=== PATIENT | male | born 1945 | race Caucasian/White ===

== ENCOUNTER 2016-11-18 09:19 | Observation (INO) | payer MEDICARE ==
[~2016-11-18] VITALS: Ht 180.3 cm; Wt 85.7 kg
[2016-11-18] MEDS: DOCUSATE SODIUM 100 MG CAP PO SCH ×2 (09:00→20:57)
[~2016-11-18 09:19] MED LIST: /WARF25TA; ATEN25TA; ENOXAPARIN 40 MG/0.4 ML SYRINGE (J1650) SC SCH; LISI10TA4; THERGRAN
[2016-11-18] MEDS ORDERED: FLOM5CAP PO (09:35)
[2016-11-18] MEDS ORDERED: BISO5TAB5 (09:35)
[2016-11-18] MEDS ORDERED: NS 500 ML IV ONE (10:00)
[2016-11-18 10:29] LABS: INR 3.61
[2016-11-18 10:30] LABS: ANION GAP 10 MEQ/L (8-16); BLOOD UREA NITROGEN 25 MG/DL (7-18); CALCIUM LEVEL 8.4 MG/DL (8.8-10.2); CARBON DIOXIDE LEVEL 25 MEQ/L (21-32); CHLORIDE LEVEL 105 MEQ/L (98-107); CREATININE FOR GFR 1.11 MG/DL (0.70-1.30); GLOMERULAR FILTRATION RATE > 60.0 (>42); GLUCOSE, FASTING 205 MG/DL (83-110); POTASSIUM SERUM 3.8 MEQ/L (3.5-5.1); SODIUM LEVEL 140 MEQ/L (136-145)
--- NOTE | 2016-11-18 10:32 | REP ---
CT HEAD WITHOUT CONTRAST: HISTORY: Infarction. Areas of decreased attenuation are present in the periventricular white matter. This represents small vessel ischemic disease. There is no intraparenchymal hemorrhage, mass or midline shift. The ventricular system and cortical sulci are dilated consistent with minimal volume loss. There is no extracerebral collection. Mucosal thickening is present in the ethmoid sinuses. IMPRESSION: 1. Small vessel ischemic disease. 2. Minimal volume loss. Signed by Kali Ulloa MD 11/18/2016 10:34 A
[2016-11-18 10:43] LABS: BASO % 0.3 % (0.0-1.0); EOS # 0.1 K/mm3 (0.0-0.50); EOS % 1.3 % (0.0-3.0); LARGE UNSTAINED CELL # 0.1 K/mm3 (0.0-0.4); LARGE UNSTAINED CELL % 2.6 % (0.0-4.0); LYMPH # 0.7 K/mm3 (1.5-4.5); LYMPH % 16.9 % (24.0-44.0); MEAN CORPUSCULAR VOLUME 96.9 fl (80.0-96.0); MONO # 0.3 K/mm3 (0.0-0.8); NEUTROPHILS # 2.9 K/mm3 (1.8-7.7); NEUTROPHILS % 70.8 % (36.0-66.0); PLATELET COUNT, AUTOMATED 110 k/mm3 (150-450); RED CELL DISTRIBUTION WIDTH 13.1 % (11.5-14.5); WHITE BLOOD COUNT 4.2 K/mm3 (4.0-10.0)
--- NOTE | 2016-11-18 10:46 | REP ---
Portable chest x-ray: Single view. History: CVA. Comparison study: December 16, 2008. Findings: EKG monitoring electrodes overlie the chest. There are metallic arlette in the right shoulder apparently in the glenoid. These are unchanged. The aorta is calcific and a little tortuous. Heart is mildly enlarged. Pulmonary vasculature is not increased. There is no evidence of pleural effusion or pulmonary edema. No significant bony abnormality is seen. Impression: Mildly prominent heart. Otherwise no active disease. Signed by Dimitris Melchor MD 11/18/2016 01:13 P
--- NOTE | 2016-11-18 10:47 | REP ---
RIGHT KNEE SERIES: FIVE VIEWS. HISTORY: CVA. FINDINGS: There is a comminuted nondisplaced fracture of the proximal fibular diaphysis. Mild diffuse osteopenia is noted. No tibial or femoral fracture is seen. No patellar fracture is observed. There is mild patellofemoral osteoarthritic spurring. Chondrocalcinosis is noted medially and laterally. IMPRESSION: Proximal fibular fracture, nondisplaced. Chondrocalcinosis and mild patellofemoral osteoarthritis. No other fracture seen. Signed by Dimitris Melchor MD 11/18/2016 01:14 P
--- NOTE | 2016-11-18 10:48 | REP ---
RIGHT TIB-FIB SERIES: TWO VIEWS. HISTORY: Trauma. FINDINGS: There is a comminuted fracture of the proximal fibular diaphysis as seen on the knee radiographs. No tibial or distal fibular fracture is seen. Ankle mortise is intact. Vascular calcification is noted. There is a linear collection of plaque-like calcification along the anterior margin of the Achilles tendon on the lateral film. There is a small accessory ossicle at the distal aspect of the talus. No midfoot or hindfoot fracture is seen. IMPRESSION: Proximal fibular fracture. No other fracture seen. Pre-Achilles calcification implies prior Achilles tendinopathy. Signed by Dimitris Melchor MD 11/18/2016 01:14 P
[2016-11-18] MEDS ORDERED: GLUCTAB6 PO (10:49)
[2016-11-18] MEDS ORDERED: VITMTA PO (10:49)
[2016-11-18] MEDS ORDERED: BISO5TAB5 PO (10:49)
[2016-11-18] MEDS ORDERED: PROBCAP4 PO (10:49)
[2016-11-18] MEDS ORDERED: B COTAB3 PO (10:49)
[2016-11-18] MEDS ORDERED: MAGN64TASA PO (10:49)
[2016-11-18] MEDS ORDERED: MILK175C7 PO (10:49)
[2016-11-18] MEDS ORDERED: CALC600T57 PO (10:49)
[2016-11-18] MEDS ORDERED: COUM1TAB17 PO (10:51)
[2016-11-18] MEDS ORDERED: COUM2.5T11 PO (10:51)
--- NOTE | 2016-11-18 11:37 | REP ---
RIGHT LOWER EXTREMITY DUPLEX VENOUS ULTRASOUND: HISTORY: Right calf pain, question DVT. FINDINGS: The deep veins are anechoic and fully compressible from the groin to the popliteal fossa in the right lower extremity on two-dimensional scanning. Color-flow imaging is homogeneous. Spectral Doppler interrogation demonstrates intact respiratory variation in flow and normal manual augmentation of flow. There is no evidence of deep vein thrombosis. IMPRESSION: Negative right lower extremity duplex venous ultrasound. No evidence of DVT. Signed by Dimitris Melchor MD 11/18/2016 01:14 P
[2016-11-18] MEDS ORDERED: ONDANSETRON 4MG/2ML VIAL (J2405) IV PRN (11:45)
--- NOTE | 2016-11-18 12:00 | REP ---
RIGHT ANKLE SERIES: FOUR VIEWS. HISTORY: Pain. FINDINGS: Four views of the right ankle demonstrate an intact ankle mortise. No ankle fracture is seen. Vascular calcification is seen. There is dystrophic calcification adjacent to a somewhat thickened Achilles tendon, consistent with Achilles tendonitis-tendinopathy. There is mild calcaneal spurring at the Achilles tendon insertion. An accessory ossicle is seen adjacent to the distal talus. Ankle mortise is intact. Minimal tibiotalar spurring is seen. IMPRESSION: Mild spurring. Achilles tendinopathy changes. Accessory ossicle at the distal talus. No fracture or acute bony abnormality. Signed by Dimitris Melchor MD 11/18/2016 01:14 P
[2016-11-18 12:28] VITALS: BP 136/99
--- NOTE | 2016-11-18 12:58 | ER ---
DATE OF CONSULTATION: 11/18/2016 REQUESTING PHYSICIAN: Amaya Reeder MD CHIEF COMPLAINT: Right leg injury with a proximal fibula fracture. HISTORY: This is a pleasant 70-year-old gentleman who yesterday got up and felt somewhat dizzy or lightheaded and fell. He then fell a couple more times. His helped him to the couch. He has had some right medial sided knee pain that has gotten quite a bit better and he has had some right proximal lateral sided leg pain. Patient is being admitted for a possible transient ischemic attack (TIA) and observation. I was asked to see him because he has a proximal fibula fracture. He denies any other injury. He is resting comfortably. A splint has been applied by Dr. Coreas and she indicated that all the skin was intact. There were no open wounds. He describes no ankle pain. Describes medial sided knee pain and proximal lateral sided leg pain. ALLERGIES: He has no known drug allergies. MEDICATIONS: Include Flomax, bisoprolol, multivitamin, calcium, magnesium, glucosamine and Coumadin. SOCIAL HISTORY: He is an otherwise active gentleman, plays a lot of tennis. He considers himself quite healthy. PAST SURGICAL HISTORY: Includes: Ablation for atrial fibrillation. Colonoscopy. Colon resection. Achilles, elbow and hand surgery. REVIEW OF SYSTEMS: Positive history of gastrointestinal disorder with celiac disease. He has a history of cancer of prostate. HEENT: He wears glasses. ENDOCRINE DISORDERS: Denies. BLOOD DISORDERS: History of a low white cell count per the chart. Denies any psychiatric problems. PHYSICAL EXAMINATION: He is alert, oriented no acute distress. HEENT extraocular muscles intact. Neck is supple, nontender. He has no chest tenderness. No abdominal tenderness. He denies any upper extremity tenderness. He has no swelling or deformity. His left lower extremity is unremarkable. Right lower extremity demonstrates no irritability with range of motion of his hip or knee. He has no significant medial joint line tenderness. He is somewhat tender along his proximal fibula on the right side. He moves his toes well, but he is splinted. He has no tenderness about his ankle. He has good perfusion of his extremity distally. Radiographs were reviewed and they demonstrate a right proximal fibula shaft fracture, overall mildly displaced and good position. His ankle shows no evidence of mortis widening to indicate . The knee x-ray just shows the proximal fibula fracture with mild displacement. There is likely some mild arthritic change. IMPRESSION: Right proximal fibula fracture. This is likely due to a direct blow to the proximal fibula. There is no evidence of an ankle injury or a Maisonneuve fracture. He is in a posterior splint this point, which I think is appropriate. My recommendation would be non-weightbearing on his right lower extremity with crutches or walker. Ice and elevate as necessary, pain control, and then followup in the orthopedic office in approximately a week to 10 days. We may be able to ago with an equalizer boot at that point.
--- NOTE | 2016-11-18 15:12 | HPEPDOC ---
Medical History and Physical Date of Admission Nov 18, 2016 at 11:41 History and Physical PRIMARY CARE PROVIDER: ATTENDING: Anton Ruby MD CHIEF COMPLAINT: Passing out HISTORY OF PRESENT ILLNESS: This is a 70-year-old male past history of atrial fibrillation on Coumadin, hypertension, alcoholic cirrhosis, chronic from cytopenia, prostate cancer status post seed implant, celiac sprue, colon cancer status post colectomy who presents with pre-syncopal episodes. Patient states he's been drinking alcohol recently and drank half a bottle of [place] whiskey, The next day he started to do crunches and bicycle exercises. Patient states he felt very dehydrated with a dry mouth. Patient states she's been having dizziness and blurred vision upon standing from sitting position. Patient states she's been having these complaints symptoms consistent with orthostatic hypotension over the past year, and states he was started on Flomax a year ago for BPH. Patient denies chest pain/shortness of breath. No focal weakness. No syncopal episodes. No head trauma. Patient states he must of bumped his right leg upon falling as he fell 3 times yesterday. In the ED patient was found to have a right fibular fracture. Dr. Coresa had placed a cast, and the patient was in [facility] by orthopedics with recommendations for nonweightbearing on the right leg, continuing cast, and follow-up with them in the clinic in 7-10 days after discharge. PAST MEDICAL HISTORY: As per HPI PAST SURGICAL HISTORY: Achilles tendon repair, left elbow, right shoulder surgery, colectomy. SOCIAL HISTORY:H/o tobacco abuse x 10 years, quit 1974, H.o alcohol abuse, still drinking, however states he has cut down. No illicit drugs.Lives with . FAMILY HISTORY: Non contributory ALLERGIES: Please see below. REVIEW OF SYSTEMS: HEENT: Denies sore throat/headache CARDIOVASCULAR: Denies chest pain/palpitations RESPIRATORY: No shortness of breath/cough GASTROINTESTINAL: denies nausea/vomiting GENITOURINARY: Denies dysuria/urinary urgency. MUSCULOSKELETAL: Denies myalgias/arthralgias NEUROLOGICAL: Denies any focal weakness Rest of ROS negative. HOME MEDICATIONS: Please see below. PHYSICAL EXAMINATION: Vitals: (see below) General: No acute distress, laying comfortably in bed. HEENT: Moist mucous membranes. Neck: No JVD or lymphadenopathy Cardiac: Irregularly irregular, No murmurs Pulm: Clear to auscultation b/l. No wheezing, rhonchi Abd: NT/ND + BS Ext: No edema or cyanosis LABORATORY DATA: See below. IMAGING: CT head 11/18/16 IMPRESSION: 1. Small vessel ischemic disease. 2. Minimal volume loss. Right Knee X ray 11/18/16 IMPRESSION: Proximal fibular fracture, nondisplaced. Chondrocalcinosis and mild patellofemoral osteoarthritis. No other fracture seen. CXR 11/18/16 Impression: Mildly prominent heart. Otherwise no active disease. Right Tib/Fib X ray 11/18/16 IMPRESSION: Proximal fibular fracture. No other fracture seen. Pre-Achilles calcification implies prior Achilles tendinopathy Right ankle x ray 11/18/16 IMPRESSION: Mild spurring. Achilles tendinopathy changes. Accessory ossicle at the distal talus. No fracture or acute bony abnormality. MICROBIOLOGY: Please see below. ASSESSMENT/PLAN: 1. Presyncope, resulting in multiple falls, likely secondary to orthostatic hypotension. Orthostatic vitals + in the ED. Patient does appear to be volume depleted. He has been drinking alcohol recently in has been dehydrated. We'll start gentle IV fluid hydration. Echocardiogram and cardiac enzymes for completeness. Flomax is also been stopped as it is associated with orthostatic hypotension. 2. Right fibular fracture- patient is currently in a cast. Evaluated by orthopedics with recommendations for nonweightbearing on the right lower extremity. Follow-up with orthopedics in 7-10 days after discharge. 3. Hypertension- controlled continue current meds 4. Atrial fibrillation- rate controlled. INR greater than 3. Will hold Coumadin for now, repeat INR in the a.m. for restarting Coumadin. No bleeding at this time. 5. Alcoholic cirrhosis with associated chronic thrombocytopenia- no active bleeding at this time. 6. Alcohol abuse- counseled on cessation. MVI, Folate, Thiamine, Ativan PRN. 7. History of colon cancer status post colectomy 8. History of prostate cancer status post seed implant DVT prophylaxis on Coumadin We'll observe in PCU. Vital Signs Vital Signs Date Time Temp Pulse Resp B/P Pulse Ox O2 Delivery O2 Flow Rate FiO2 11/18/16 10:05 95 155/79 87 104/70 85 77/52 11/18/16 10:19 99 11/18/16 10:49 18 11/18/16 12:28 97.8 Room Air Laboratory Data Labs 24H Laboratory Tests 2 11/18/16 10:03: Activated Partial Thromboplast Time 37.1, Anion Gap 10, White Blood Count 4.2, Red Blood Count 4.13L, Hemoglobin 13.2L, Hematocrit 40.0L, Mean Corpuscular Volume 96.9H, Mean Corpuscular Hemoglobin 32.0, Mean Corpuscular Hemoglobin Concent 33.0, Red Cell Distribution Width 13.1, Platelet Count 110L, Neutrophils (%) (Auto) 70.8H, Lymphocytes (%) (Auto) 16.9L, Monocytes (%) (Auto ) 8.0H, Eosinophils (%) (Auto) 1.3, Basophils (%) (Auto) 0.3, Neutrophils # ( Auto) 2.9, Lymphocytes # (Auto) 0.7L, Monocytes # (Auto) 0.3, Eosinophils # ( Auto) 0.1, Basophils # (Auto) 0.0, Blood Urea Nitrogen 25H, Creatinine 1.11, Sodium Level 140, Potassium Level 3.8, Chloride Level 105, Carbon Dioxide Level 25, Calcium Level 8.4L, Total Creatine Kinase 311H, Creatine Kinase MB 1.5, Creatine Kinase MB Relative Index 0.48, Glomerular Filtration Rate > 60.0, Large Unclassified Cells # 0.1, Large Unclassified Cells % 2.6, Prothromb Time International Ratio 3.61, Prothrombin Time 36.0H, Troponin I < 0.02 11/18/16 10:31: Bedside Glucose (Misc Panel) 182H 11/18/16 12:14: Total Creatine Kinase 343H, Creatine Kinase MB 1.4, Creatine Kinase MB Relative Index 0.40, Troponin I < 0.02 CBC/BMP Laboratory Tests 11/18/16 10:03 Calcium Level 8.4 L, Total Creatine Kinase 311 H, Red Blood Count 4.13 L, Mean Corpuscular Volume 96.9 H, Mean Corpuscular Hemoglobin 32.0, Mean Corpuscular Hemoglobin Concent 33.0, Red Cell Distribution Width 13.1, Neutrophils (%) (Auto ) 70.8 H, Lymphocytes (%) (Auto) 16.9 L, Monocytes (%) (Auto) 8.0 H, Eosinophils (%) (Auto) 1.3, Basophils (%) (Auto) 0.3, Neutrophils # (Auto) 2.9, Lymphocytes # (Auto) 0.7 L, Monocytes # (Auto) 0.3, Eosinophils # (Auto) 0.1, Basophils # (Auto) 0.0 Home Medications Scheduled (Calcium + D3 600-200 mg-Unit) 1 Tab Tab 1 TAB PO DAILY (Glucosamine Chondroitin) 1 Tab Tab 1 TAB PO BID (B Complex) 1 Tab Tab 1 TAB PO DAILY Bisoprolol Fumarate (Bisoprolol Fumarate) 5 Mg Tab 2.5 MG PO QHS Lactobacillus Acidophilus (Probiotic) 1 Cap Cap 1 CAP PO DAILY Magnesium Chloride (Mag64) 64 Mg Tabcr 64 MG PO DAILY Multivitamins *[facility] STOCKED* (Thera M Plus *[facility] STOCKED*) 1 Tab Tab 1 TAB PO DAILY Silybum Marianum (Milk Thistle) 175 Mg Cap 175 MG PO DAILY Tamsulosin Hydrochloride (Flomax) 0.4 Mg Cap 1 CAP PO QHS Warfarin Sod (Coumadin) 2.5 Mg Tab 2.5 MG PO 6XWK TU,WED,TH,FRI,SAT,SUN Warfarin Sod (Coumadin) 5 Mg Tab 5 MG PO QWEEK MONDAYS Allergies Coded Allergies: No Known Drug Allergy (Verified Allergy, Unknown, 12/12/12) ANTON RUBY MD Nov 18, 2016 15:12
[2016-11-18 15:30] VITALS: BP 146/87
[2016-11-18] MEDS: NS 1,000 ML IV SCH (15:53)
[2016-11-18] MEDS: FOLIC ACID 1 MG TAB PO SCH (15:53)
[2016-11-18] MEDS: THIAMINE 100 MG TAB PO SCH (15:53)
[2016-11-18 19:55] VITALS: BP_SYST 120; BP_SYST 122; BP_SYST 129; BP_DIAS 75; BP_DIAS 80; BP_DIAS 96
--- NOTE | 2016-11-18 20:34 | ECGEPIP ---
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
[2016-11-18 21:00] VITALS: BP 146/87
[2016-11-18] MEDS ORDERED: BISOPROLOL FUM 2.5 MG PER 1/2TAB PO SCH (21:00)
[2016-11-18] MEDS: PERCOCET 5MG/325MG TAB PO PRN (21:01)
[2016-11-18 23:55] VITALS: BP 118/73
[2016-11-19] MEDS: NS 1,000 ML IV SCH (00:35)
[2016-11-19] MEDS: PERCOCET 5MG/325MG TAB PO PRN ×3 (01:53→15:21)
[2016-11-19 04:35] LABS: MEAN CORPUSCULAR HEMOGLOBIN 32.5 pg (27.0-33.0); MEAN CORPUSCULAR HGB CONC 33.5 g/dl (32.0-36.5); RED CELL DISTRIBUTION WIDTH 13.1 % (11.5-14.5); WHITE BLOOD COUNT 3.5 K/mm3 (4.0-10.0)
[2016-11-19 04:59] LABS: INR 3.17
[2016-11-19 05:01] LABS: ALBUMIN 2.8 GM/DL (3.2-5.2); ALBUMIN/GLOBULIN RATIO 0.85 (1.00-1.93); ALKALINE PHOSPHATASE 61 U/L (45-117); ALT/SGPT 24 U/L (12-78); ANION GAP 7 MEQ/L (8-16); AST/SGOT 32 U/L (15-37); BILIRUBIN,TOTAL 1.4 MG/DL (0.2-1.0); BLOOD UREA NITROGEN 15 MG/DL (7-18); CALCIUM LEVEL 7.7 MG/DL (8.8-10.2); CARBON DIOXIDE LEVEL 28 MEQ/L (21-32); CHLORIDE LEVEL 109 MEQ/L (98-107); CREATININE FOR GFR 0.78 MG/DL (0.70-1.30); GLOMERULAR FILTRATION RATE > 60.0 (>42); GLUCOSE, FASTING 80 MG/DL (83-110); POTASSIUM SERUM 4.5 MEQ/L (3.5-5.1); SODIUM LEVEL 144 MEQ/L (136-145); TOTAL PROTEIN 6.1 GM/DL (6.4-8.2)
[2016-11-19 05:06] VITALS: BP_SYST 112; BP_SYST 114; BP_SYST 137; BP_DIAS 78; BP_DIAS 80; BP_DIAS 88
--- NOTE | 2016-11-19 06:00 | ECHO ---
DATE OF PROCEDURE: 11/18/2016 REFERRING PHYSICIAN: Dr. Perry Ruby. INDICATION: Syncope. HEIGHT: 71. WEIGHT: 83.5 kg. MEASUREMENTS: Ventricular septum: 1.13 cm Posterior wall: 0.90 cm Left ventricle diastole: 4.9 cm Left atrium: 4.4 cm LVOT: 2.4 cm Aortic root: 3.4 cm DOPPLER MEASUREMENTS: Aortic valve velocity: 111 cm/s LVOT velocity: 67.7 cm/s Mild mitral regurgitation. Mild tricuspid regurgitation. Estimated right ventricle systolic pressure 26 mmHg assuming an atrial pressure of 5 mmHg. DESCRIPTION: Rhythm was moderately technically difficult. Rhythm was atrial fibrillation. This was a 2D, M-mode, color flow Doppler and pulsed wave Doppler examination and included mitral annular tissue Doppler. CONCLUSIONS: 1. Normal left ventricle internal dimensions and wall thickness. No regional wall motion abnormalities. Normal LV systolic function. LVEF 60% by visual estimate. Unable to assess LV diastolic function in the setting of atrial fibrillation. 2. Mild mitral annular calcification. Mild mitral valve regurgitation. 3. Moderate left atrial dilatation. 4. Mild aortic valve sclerosis of a 3-cusp aortic valve. No aortic regurgitation. 5. Very small pericardial effusion. No diastolic chamber collapse. 6. Moderately technically difficult echocardiogram.
[2016-11-19 08:00] VITALS: BP 118/71
[2016-11-19] MEDS ORDERED: NS 1,000 ML IV SCH (08:15)
[2016-11-19] MEDS: THIAMINE 100 MG TAB PO SCH (08:48)
[2016-11-19] MEDS: FOLIC ACID 1 MG TAB PO SCH (08:48)
[2016-11-19] MEDS: DOCUSATE SODIUM 100 MG CAP PO SCH (08:48)
[2016-11-19] MEDS ORDERED: MULTIVITAMINS/MINERALS THERAP 1 TAB PO SCH (09:00)
[2016-11-19] MEDS ORDERED: LACTOBACILLUS ACIDOPHILUS CAP (BACID) PO SCH (09:00)
[2016-11-19 11:36] VITALS: BP_SYST 102; BP_SYST 118; BP_SYST 132; BP_DIAS 78; BP_DIAS 80; BP_DIAS 86
[2016-11-19] MEDS ORDERED: FOLI1TAB2 PO (13:37)
[2016-11-19] MEDS ORDERED: THIA100TA PO (13:37)
--- NOTE | 2016-11-19 15:19 | DS.PDOC ---
Discharge Summary General Date of Admission Nov 18, 2016 at 11:41 Date of Discharge 11/19/16 Attending Physician: ANTON QUINONEZ MD Specialist/Consultants Involve: Raúl Shields Discharge Summary PROCEDURES PERFORMED DURING STAY: None. ADMITTING/DISCHARGE DIAGNOSES: 1. Syncope secondary to orthostatic hypotension 2. Right fibular fracture status post cast placement and orthopedic evaluation 3. Hypertension 4. Atrial fibrillation and Coumadin 5. Alcohol cirrhosis and alcohol abuse with chronic thrombocytopenia 6. History of colon cancer status post colectomy 7. History of prostate cancer status post sees implant COMPLICATIONS/CHIEF COMPLAINT: Syncope And Collapse. HISTORY OF PRESENT ILLNESS/HOSPITAL COURSE: . This is a 70-year-old male past history of atrial fibrillation on Coumadin, hypertension, alcoholic cirrhosis, chronic from cytopenia, prostate cancer status post seed implant, celiac sprue, colon cancer status post colectomy who presents with pre-syncopal episodes. Patient states he's been drinking alcohol recently and drank half a bottle of [place] whiskey, The next day he started to do crunches and bicycle exercises. Patient states he felt very dehydrated with a dry mouth. Patient states she's been having dizziness and blurred vision upon standing from sitting position. Patient states she's been having these complaints symptoms consistent with orthostatic hypotension over the past year, and states he was started on Flomax a year ago for BPH. Patient denies chest pain/shortness of breath. No focal weakness. No syncopal episodes. No head trauma. Patient states he must of bumped his right leg upon falling as he fell 3 times yesterday. In the ED patient was found to have a right fibular fracture. Dr. Coreas had placed a cast, and the patient was in [facility] by orthopedics with recommendations for nonweightbearing on the right leg, continuing cast, and follow-up with them in the clinic in 7-10 days after discharge. Patient has been hydrated and now has negative orthostatics. Patient has been doing well with mobility. His INR still greater than 3. He has been advised to hold his Coumadin today. He 'll restart his Coumadin tomorrow at 2.5 mg daily, and will have his INR checked on Tuesday with those results to be sent to Dr. Bermudez, for further management of his INR. Patient verbalized understanding. Have also given him a prescription for no weightbearing on his right leg. No driving until cleared by orthopedics. Patient was counseled on cessation of alcohol. Advised to stay hydrated. Flomax has been held until patient has been evaluated by urology, as this could cause orthostatic hypotension. DISCHARGE MEDICATIONS: Please see below. ALLERGIES: Please see below. PHYSICAL EXAMINATION ON DISCHARGE: Vitals: (see below) General: No acute distress, laying comfortably in bed. HEENT: Moist mucous membranes. Neck: No JVD or lymphadenopathy Cardiac: Irregularly irregular, No murmurs Pulm: Clear to auscultation b/l. No wheezing, rhonchi Abd: NT/ND + BS Ext: No edema or cyanosis. Right leg in cast. Distal pulses intact. LABORATORY DATA: Please see below. IMAGING: CT head 11/18/16 IMPRESSION: 1. Small vessel ischemic disease. 2. Minimal volume loss. Right Knee X ray 11/18/16 IMPRESSION: Proximal fibular fracture, nondisplaced. Chondrocalcinosis and mild patellofemoral osteoarthritis. No other fracture seen. CXR 11/18/16 Impression: Mildly prominent heart. Otherwise no active disease. Right Tib/Fib X ray 11/18/16 IMPRESSION: Proximal fibular fracture. No other fracture seen. Pre-Achilles calcification implies prior Achilles tendinopathy Right ankle x ray 11/18/16 IMPRESSION: Mild spurring. Achilles tendinopathy changes. Accessory ossicle at the distal talus. No fracture or acute bony abnormality. PROGNOSIS: Good ACTIVITY: As tolerated. DIET: As tolerated DISCHARGE PLAN: Discharge to home DISPOSITION: Discharged to home DISCHARGE INSTRUCTIONS: 1. Follow-up with PCP and orthopedics in 7-10 days. Follow-up with urology in 2 weeks. DISCHARGE CONDITION: Stable. TIME SPENT ON DISCHARGE: Greater than 30 minutes. Vital Signs/I&Os Vital Signs Date Time Temp Pulse Resp B/P Pulse Ox O2 Delivery O2 Flow Rate FiO2 11/19/16 11:36 88 118/78 100 102/80 85 132/86 11/19/16 09:23 18 11/19/16 08:53 Room Air 11/19/16 08:00 97.0 96 11/18/16 16:00 3.0 I&O- Last 24 Hours up to 6 AM 11/19/16 06:00 Intake Total 500 ml Output Total 500 ml Balance 0 ml Laboratory Data Labs 24H Laboratory Tests 2 11/18/16 17:15: Urine Amorphous Sediment SMALLH, Urine Appearance CLOUDYH, Urine Color LISE, Urine pH 7.0, Urine Specific [place] 1.025, Urine Protein NEGATIVE, Urine Glucose (UA) NEGATIVE, Urine Ketones NEGATIVE, Urine Urobilinogen 0.2, Urine Bilirubin NEGATIVE, Urine Leukocyte Esterase NEGATIVE, Urine Bacteria (Auto) 1+H , Urine Blood NEGATIVE, Urine Calcium Carbonate Cryst(Auto) , Urine Calcium Oxalate Cryst (Auto) , Urine Calcium Phosphate [place] (Auto) , Urine Cellular Casts , Urine Cystine Crystals , Urine Granular Casts (Auto) , Urine Hyaline Casts (Auto) 0, Urine Leucine Crystals , Urine Mucus (Auto) , Urine Nitrite NEGATIVE, Urine Oval Fat Bodies (Auto) , Urine RBC (Auto) 2, Urine Renal Epithelial Cells , Urine Sperm (Auto) , Urine Squamous Epithelial Cells 0, Urine Transitional Epithelial Cells , Urine Trichomonas (Auto) , Urine Triple Phosphate Cryst (Auto) , Urine Tyrosine Crystals , Urine Uric Acid Crystals ( Auto) , Urine WBC (Auto) 0, Urine Waxy Casts (Auto) , Urine Yeast-Like Cells ( Auto) 11/18/16 19:45: Creatine Kinase MB 1.0, Creatine Kinase MB Relative Index 0.36, Total Creatine Kinase 277, Troponin I < 0.02 11/19/16 04:25: Creatine Kinase MB 1.0, Creatine Kinase MB Relative Index 0.41, Total Creatine Kinase 243, Troponin I < 0.02, Blood Urea Nitrogen 15, Creatinine 0.78, Sodium Level 144, Potassium Level 4.5, Chloride Level 109H, Carbon Dioxide Level 28, Calcium Level 7.7L, Aspartate Amino Transf (AST/SGOT) 32, Alanine Aminotransferase (ALT/SGPT) 24, Alkaline Phosphatase 61, Total Bilirubin 1.4H, Total Protein 6.1L, Albumin 2.8L, Albumin/Globulin Ratio 0.85L, Anion Gap 7L, Glomerular Filtration Rate > 60.0, Prothromb Time International Ratio 3.17, Prothrombin Time 32.5H CBC/BMP Laboratory Tests 11/19/16 04:25 Calcium Level 7.7 L, Aspartate Amino Transf (AST/SGOT) 32, Alanine Aminotransferase (ALT/SGPT) 24, Total Creatine Kinase 243, Alkaline Phosphatase 61, Total Bilirubin 1.4 H, Total Protein 6.1 L, Albumin 2.8 L, Red Blood Count 3.65 L, Mean Corpuscular Volume 97.0 H, Mean Corpuscular Hemoglobin 32.5, Mean Corpuscular Hemoglobin Concent 33.5, Red Cell Distribution Width 13.1 Discharge Medications Scheduled (Calcium + D3 600-200 mg-Unit) 1 Tab Tab 1 TAB PO DAILY (Reported) (Glucosamine Chondroitin) 1 Tab Tab 1 TAB PO BID (Reported) (B Complex) 1 Tab Tab 1 TAB PO DAILY (Reported) Bisoprolol Fumarate (Bisoprolol Fumarate) 5 Mg Tab 2.5 MG PO QHS (Reported) Folic Acid (Folic Acid) 1 Mg Tab 1 MG PO DAILY Lactobacillus Acidophilus (Probiotic) 1 Cap Cap 1 CAP PO DAILY (Reported) Magnesium Chloride (Mag64) 64 Mg Tabcr 64 MG PO DAILY (Reported) Multivitamins *[facility] STOCKED* (Thera M Plus *[facility] STOCKED*) 1 Tab Tab 1 TAB PO DAILY (Reported) Silybum Marianum (Milk Thistle) 175 Mg Cap 175 MG PO DAILY (Reported) Thiamine Hcl (Thiamine Hcl) 100 Mg Tab 100 MG PO DAILY Warfarin Sod (Coumadin) 2.5 Mg Tab 2.5 MG PO 6XWK (Reported) TU,WED,TH,FRI,SAT,SUN Allergies Coded Allergies: No Known Drug Allergy (Verified Allergy, Unknown, 12/12/12) ANTON QUINONEZ MD Nov 19, 2016 15:19
== END 2016-11-19 15:47 | disposition home or self-care (01) ==
LOC: M ED 10:09 → INTOOBSV 11:41 → M ED INP 11:41 → M PCU 15:24
PROVIDERS: ADMIT Internal Medicine; ATTEND Internal Medicine
DX: I95.1 Orthostatic hypotension (principal); R55 Syncope and collapse; I10 Essential (primary) hypertension; S82.831A Other fracture of upper and lower end of right fibula, initial encounter for closed fracture; W19.XXXA Unspecified fall, initial encounter; Y92.89 Other specified places as the place of occurrence of the external cause; M79.661 Pain in right lower leg; I48.91 Unspecified atrial fibrillation; Z79.01 Long term (current) use of anticoagulants; F10.10 Alcohol abuse, uncomplicated; K70.30 Alcoholic cirrhosis of liver without ascites; D69.6 Thrombocytopenia, unspecified; Z85.038 Personal history of other malignant neoplasm of large intestine; Z85.46 Personal history of malignant neoplasm of prostate; Z87.891 Personal history of nicotine dependence
CPT/HCPCS: 36415; 70450; 71010; 73564; 73590; 73610; 80048; 80053; 81001; 82550; 82553; 84484; 85025; 85027; 85610; 85730; 86850; 86900; 86901; 93005; 93041; 93306; 93971; 94760; 96372; 97165; 99285; G0378; J1650

== ENCOUNTER 2016-12-20 14:14 | Emergency (ER) | payer MEDICARE ==
[~2016-12-20 14:14] MED LIST changes: +B COTAB3 PO; +BISO5TAB5; +BISO5TAB5 PO; +CALC600T57 PO; +COUM1TAB17 PO; +COUM2.5T11 PO; -ENOXAPARIN 40 MG/0.4 ML SYRINGE (J1650) SC SCH; +FLOM5CAP PO; +FOLI1TAB2 PO; +GLUCTAB6 PO; +MAGN64TASA PO; +MILK175C7 PO; +PROBCAP4 PO; +THIA100TA PO; +VITMTA PO
[2016-12-20 14:55] LABS: BASO % 0.1 % (0.0-1.0); EOS # 0.1 K/mm3 (0.0-0.50); EOS % 1.3 % (0.0-3.0); LARGE UNSTAINED CELL # 0.1 K/mm3 (0.0-0.4); LARGE UNSTAINED CELL % 0.9 % (0.0-4.0); LYMPH # 0.9 K/mm3 (1.5-4.5); LYMPH % 8.5 % (24.0-44.0); MEAN CORPUSCULAR HEMOGLOBIN 32.2 pg (27.0-33.0); MEAN CORPUSCULAR HGB CONC 33.2 g/dl (32.0-36.5); MEAN CORPUSCULAR VOLUME 97.1 fl (80.0-96.0); MONO # 0.6 K/mm3 (0.0-0.8); MONO % 6.3 % (0.0-5.0); NEUTROPHILS # 7.5 K/mm3 (1.8-7.7); PLATELET COUNT, AUTOMATED 146 k/mm3 (150-450); RED CELL DISTRIBUTION WIDTH 13.7 % (11.5-14.5); WHITE BLOOD COUNT 9.1 K/mm3 (4.0-10.0)
--- NOTE | 2016-12-20 15:06 | ECGEPIP ---
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
[2016-12-20 15:21] LABS: ANION GAP 10 MEQ/L (8-16); BLOOD UREA NITROGEN 24 MG/DL (7-18); CALCIUM LEVEL 8.6 MG/DL (8.8-10.2); CARBON DIOXIDE LEVEL 26 MEQ/L (21-32); CHLORIDE LEVEL 105 MEQ/L (98-107); CREATININE FOR GFR 1.35 MG/DL (0.70-1.30); GLOMERULAR FILTRATION RATE 55.3 (>42); GLUCOSE, FASTING 129 MG/DL (83-110); POTASSIUM SERUM 3.9 MEQ/L (3.5-5.1); SODIUM LEVEL 141 MEQ/L (136-145)
--- NOTE | 2016-12-20 15:28 | REP ---
PORTABLE CHEST X-RAY: Single view. HISTORY: Chest pain. Comparison study November 18, 2016. FINDINGS: EKG monitoring electrodes overlie the chest. Heart is mildly prominent in size unchanged. Pulmonary vasculature is not increased. Pleural angles are sharp. No infiltrate is seen. IMPRESSION: Mildly prominent heart. Otherwise no acute disease. Signed by Dimitris Melchor MD 12/20/2016 04:00 P
[2016-12-20 15:34] LABS: INR 2.49
[2016-12-20] MEDS ORDERED: ASPIRIN 81 MG CHEW TABLET PO ONE (15:45)
[2016-12-20 20:09] VITALS: BP 150/99
--- NOTE | 2016-12-20 20:16 | ECGEPIP ---
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
== END 2016-12-20 20:17 | disposition home or self-care (01) ==
LOC: EDBD 14:14 → M ED 15:38
DX: R10.13 Epigastric pain (principal); I25.10 Atherosclerotic heart disease of native coronary artery without angina pectoris; Z79.899 Other long term (current) drug therapy; Z79.01 Long term (current) use of anticoagulants

== ENCOUNTER 2017-03-09 08:40 | Emergency (ER) | payer MEDICARE ==
[~2017-03-09] VITALS: Ht 180.3 cm; Wt 85.7 kg
[~2017-03-09 08:40] MED LIST changes: -COUM2.5T11 PO; +COUM2.5T17 PO; -FOLI1TAB2 PO; +FOLI1TAB4 PO; +MILK175C2 PO; -MILK175C7 PO
[2017-03-09] MEDS ORDERED: ASPIRIN 81 MG CHEW TABLET PO ONE (09:00)
[2017-03-09 09:11] LABS: BASO % 0.7 % (0.0-1.0); EOS # 0.2 K/mm3 (0.0-0.50); EOS % 2.9 % (0.0-3.0); LARGE UNSTAINED CELL # 0.2 K/mm3 (0.0-0.4); LARGE UNSTAINED CELL % 2.9 % (0.0-4.0); LYMPH % 18.3 % (24.0-44.0); MEAN CORPUSCULAR HEMOGLOBIN 32.9 pg (27.0-33.0); MEAN CORPUSCULAR HGB CONC 33.8 g/dl (32.0-36.5); MEAN CORPUSCULAR VOLUME 97.4 fl (80.0-96.0); MONO # 0.4 K/mm3 (0.0-0.8); MONO % 6.4 % (0.0-5.0); NEUTROPHILS # 3.8 K/mm3 (1.8-7.7); NEUTROPHILS % 68.9 % (36.0-66.0); PLATELET COUNT, AUTOMATED 167 k/mm3 (150-450); RED CELL DISTRIBUTION WIDTH 12.9 % (11.5-14.5); WHITE BLOOD COUNT 5.5 K/mm3 (4.0-10.0)
--- NOTE | 2017-03-09 09:37 | REP ---
Clinical: Chest pain . Comparison: 12/20/2016 . Findings: The mediastinum and cardiac silhouette are stable and within normal limits for portable technique. The lung alvarado are clear without acute consolidation, effusion, or pneumothorax. Skeletal structures are intact. Impression: Normal portable chest x-ray Signed by Que Meadows MD 03/09/2017 09:29 A
[2017-03-09 09:38] LABS: ALBUMIN 3.6 GM/DL (3.2-5.2); ALKALINE PHOSPHATASE 65 U/L (45-117); ALT/SGPT 29 U/L (12-78); ANION GAP 7 MEQ/L (8-16); AST/SGOT 30 U/L (15-37); BILIRUBIN,DIRECT 0.1 MG/DL (0.0-0.2); BILIRUBIN,TOTAL 0.4 MG/DL (0.2-1.0); BLOOD UREA NITROGEN 19 MG/DL (7-18); CALCIUM LEVEL 8.8 MG/DL (8.8-10.2); CARBON DIOXIDE LEVEL 27 MEQ/L (21-32); CHLORIDE LEVEL 107 MEQ/L (98-107); CREATININE FOR GFR 0.88 MG/DL (0.70-1.30); GLOMERULAR FILTRATION RATE > 60.0 (>42); GLUCOSE, FASTING 108 MG/DL (83-110); POTASSIUM SERUM 3.8 MEQ/L (3.5-5.1); SODIUM LEVEL 141 MEQ/L (136-145); TOTAL PROTEIN 8.1 GM/DL (6.4-8.2)
[2017-03-09 10:12] LABS: INR 1.84
[2017-03-09] MEDS ORDERED: PROPOFOL 200 MG/20 ML VIAL As Ordered ONE (12:10)
[2017-03-09 13:28] VITALS: BP 138/80
--- NOTE | 2017-03-11 07:11 | ECGEPIP ---
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
--- NOTE | 2017-03-11 07:15 | ECGEPIP ---
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
== END 2017-03-09 13:48 | disposition home or self-care (01) ==
LOC: M ED 08:40
DX: I48.91 Unspecified atrial fibrillation (principal); Z79.01 Long term (current) use of anticoagulants

== ENCOUNTER → 2017-10-28 | Outpatient (REF) | payer MEDICARE | LOC: M LAB REF 13:07 | DX: J20.9 Acute bronchitis, unspecified (principal) | CPT/HCPCS: 87633 ==

== ENCOUNTER → 2017-12-29 | Outpatient (REF) | payer MEDICARE ==
[2017-12-29 18:34] LABS: PHOSPHORUS LEVEL 3.2 MG/DL (2.5-4.9)
[2017-12-31 14:09] LABS: ANTI DOUBLE STRAND-DNA AB <1 IU/mL (0-9); ANTINUCLEAR ANTIBODIES DIRECT Positive (Negative); RNP ANTIBODIES <0.2 AI (0.0-0.9); SJOGREN'S ANTI SS-A <0.2 AI (0.0-0.9); SJOGREN'S ANTI SS-B <0.2 AI (0.0-0.9); SMITH ANTIBODIES <0.2 AI (0.0-0.9)
== END ==
LOC: M LAB REF 17:58
DX: R21 Rash and other nonspecific skin eruption (principal)
CPT/HCPCS: 84100

== ENCOUNTER → 2019-02-19 | Outpatient (REF) | payer MEDICARE ==
[~2019-02-19] MED LIST changes: -/WARF25TA; +COUM1TAB18; +FLOM0.4C39 PO; -FLOM5CAP PO; +FOLI1TAB11 PO; -FOLI1TAB4 PO
[2019-02-19 13:54] LABS: PROTHROMBIN TIME 48.4 SECONDS (12.1-14.4)
[2019-02-19 14:18] LABS: INR 5.09
== END ==
LOC: M LAB REF 12:25
PROVIDERS: ATTEND Internal Medicine
DX: I48.2 Chronic atrial fibrillation (principal)

== ENCOUNTER → 2019-04-18 | Outpatient (CLI) | payer MEDICARE ==
[~2019-04-18] MED LIST changes: +BISO5TAB14; +BISO5TAB14 PO; -BISO5TAB5; -BISO5TAB5 PO; +CVS1CAP2 PO; +DIGO0.123 PO; +ELIQ5TAB PO; +MILK175C6 PO; +TAMS1CAP17 PO
--- NOTE | 2019-04-18 12:02 | REP ---
MRI RIGHT KNEE: TECHNIQUE: Axial proton density fat saturation, sagittal proton density T2 STIR, water excitation, coronal proton density, proton density fat saturation. There is a complex tear of the posterior horn of medial meniscus as well as the body and posterior horn of the lateral meniscus. The cruciate and collateral ligaments are intact. The extensor mechanism is intact. There is focal moderate chondromalacia with fissuring in the cartilage of the weightbearing surface of the lateral femoral condyle. Otherwise there is mild diffuse chondromalacia along the femoral condyles and tibial plateaus both medial and laterally. There is moderately severe diffuse chondromalacia in the femoral notch and extending along the anterior aspect of the lateral femoral condyle anteriorly with mild scattered subchondral marrow edema. There is mild diffuse chondromalacia of the patella. The medial and lateral patellar retinacula are intact. There is moderate joint effusion. There is a suprapatellar plica. Oval Gibson's cyst is seen in the medial popliteal fossa with craniocaudal dimension of approximately 4.7 cm, AP dimension 1.9 cm maximally, and transverse 1.8 cm. IMPRESSION: Complex tears posterior horn medial meniscus as well as body and posterior horn lateral meniscus. Cruciate and collateral ligaments are intact. 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 There is focal moderate chondromalacia with fissuring in the weightbearing surface of the cartilage of the lateral femoral condyle. Otherwise there is mild global chondromalacia elsewhere. Moderate joint effusion. Suprapatellar plica. Gibson's cyst. Electronically Signed by Tomas Coreas MD 04/19/2019 12:34 A
== END ==
LOC: M RAD 08:09
PROVIDERS: ATTEND Orthopaedic Surgery Sports Medicine
DX: S83.231A Complex tear of medial meniscus, current injury, right knee, initial encounter (principal); X58.XXXA Exposure to other specified factors, initial encounter; Y92.89 Other specified places as the place of occurrence of the external cause; M71.21 Synovial cyst of popliteal space [Baker], right knee; M25.461 Effusion, right knee

== ENCOUNTER 2019-06-21 12:21 | Day surgery (SDC) | payer MEDICARE ==
[~2019-06-21] VITALS: Ht 180.3 cm; Wt 83.0 kg
[~2019-06-21 12:21] MED LIST changes: -BISO5TAB14; -BISO5TAB14 PO; +BISO5TAB9; +BISO5TAB9 PO; +DIGO0.12 PO; -DIGO0.123 PO; +NS 1,000 ML IV ONE
[2019-06-21] MEDS ORDERED: PROPOFOL 200 MG/20 ML VIAL As Ordered ONE (13:43)
[2019-06-21] MEDS ORDERED: LIDOCAINE 2% INJ 100 MG/5 ML SDV (FOR ANES.) As Ordered ONE (13:43)
--- NOTE | 2019-06-21 14:44 | ROOR ---
Patient Name: Oskar Apple Procedure Date: 06/21/2019 2:27 PM Date of : 1945 Age: 73 Room: [facility] Gender: Male Note Status: Finalized Procedure: Colonoscopy Indications: High risk colon cancer surveillance: Personal history of colonic polyps Providers: Juancho Troncoso Jr, MD Referring MD: JACOBY SHAFFER JR, MD Requesting Provider: Medicines: Propofol per Anesthesia Complications: No immediate complications. Procedure: Pre-Anesthesia Assessment: - Prior to the procedure, a History and Physical was performed, and patient medications and allergies were reviewed. The patient is competent. The risks and benefits of the procedure and the sedation options and risks were discussed with the patient. All questions were answered and informed consent was obtained. Patient identification and proposed procedure were verified by the physician and the nurse in the pre-procedure area and in the procedure room. Mental Status Examination: alert and oriented. Airway Examination: normal oropharyngeal airway and neck mobility. Respiratory Examination: clear to auscultation. CV Examination: normal. ASA Grade Assessment: II - A patient with mild systemic disease. After reviewing the risks and benefits, the patient was deemed in satisfactory condition to undergo the procedure. The anesthesia plan was to use moderate sedation / analgesia (conscious sedation). Immediately prior to administration of medications, the patient was re-assessed for adequacy to receive sedatives. The heart rate, respiratory rate, oxygen saturations, blood pressure, adequacy of pulmonary ventilation, and response to care were monitored throughout the procedure. The physical status of the patient was re-assessed after the procedure. The Colonoscope was introduced through the anus and advanced to the cecum, identified by appendiceal orifice and ileocecal valve. The colonoscopy was performed without difficulty. The patient tolerated the procedure well. The quality of the bowel preparation was adequate. Findings: The rectum, recto-sigmoid colon, sigmoid colon, descending colon, transverse colon, ascending colon, cecum, appendiceal orifice and ileocecal valve appeared normal. A small polyp was found in the hepatic flexure. The polyp was semi-pedunculated. The polyp was removed with a hot snare. Resection and retrieval were complete. Impression: - The rectum, recto-sigmoid colon, sigmoid colon, descending colon, transverse colon, ascending colon, cecum, appendiceal orifice and ileocecal valve are normal. - One small polyp at the hepatic flexure, removed with a hot snare. Resected and retrieved. Recommendation: - Discharge patient to home (ambulatory). - Repeat colonoscopy in 3 - 5 years for surveillance. Juancho Troncoso MD Juancho Troncoso Jr, MD 06/21/2019 2:44:14 PM Electronically signed by Juancho Troncoso Jr, MD Number of Addenda: 0 Note Initiated On: 06/21/2019 2:27 PM Estimated Blood Loss: Estimated blood loss: none.
[2019-06-21 15:15] VITALS: BP 124/76
== END 2019-06-21 15:30 | disposition home or self-care (01) ==
LOC: M OPP 12:21
PROVIDERS: ATTEND Surgery
DX: Z12.11 Encounter for screening for malignant neoplasm of colon (principal); Z86.010 Personal history of colon polyps; Z85.038 Personal history of other malignant neoplasm of large intestine; D12.3 Benign neoplasm of transverse colon; I48.91 Unspecified atrial fibrillation; Z79.899 Other long term (current) drug therapy; Z85.46 Personal history of malignant neoplasm of prostate; Z92.3 Personal history of irradiation

== ENCOUNTER → 2019-06-28 | Outpatient (REF) | payer MEDICARE ==
[~2019-06-28] MED LIST changes: -NS 1,000 ML IV ONE
[2019-06-28 13:41] LABS: APPEARANCE, URINE HAZY (CLEAR); BACTERIA, URINE AUTO NEGATIVE (NEGATIVE); BILIRUBIN, URINE AUTO NEGATIVE (NEGATIVE); BLOOD, URINE BLOOD NEGATIVE (NEGATIVE); COLOR, URINE AMBER (YELLOW); GLUCOSE, URINE (UA) AUTO NEGATIVE (NEGATIVE); KETONE, URINE AUTO NEGATIVE (NEGATIVE); LEUKOCYTE ESTERASE, URINE AUTO NEGATIVE (NEGATIVE); MUCUS, URINE SMALL (NEGATIVE); NITRITE, URINE AUTO NEGATIVE (NEGATIVE); PROTEIN, URINE AUTO NEGATIVE (NEGATIVE); RBC, URINE AUTO 1 /HPF (0-3); SPECIFIC GRAVITY URINE AUTO 1.027 (1.002-1.035); SQUAMOUS EPITHELIAL CELL UR AU 0 /HPF (0-6); WBC, URINE AUTO 0 /HPF (0-3)
== END ==
LOC: M LAB REF 12:32
PROVIDERS: ATTEND Internal Medicine
DX: Z01.818 Encounter for other preprocedural examination (principal); M75.101 Unspecified rotator cuff tear or rupture of right shoulder, not specified as traumatic

== ENCOUNTER → 2020-02-18 | Outpatient (REF) | payer MEDICARE ==
[~2020-02-18] MED LIST changes: +BISO5TAB14; +BISO5TAB14 PO; -BISO5TAB9; -BISO5TAB9 PO; -DIGO0.12 PO; +DIGO0.123 PO
== END ==
LOC: M LAB REF 11:58
PROVIDERS: ATTEND Internal Medicine
DX: I48.21 Permanent atrial fibrillation (principal)

== ENCOUNTER → 2020-05-15 | Outpatient (REF) | payer MEDICARE | LOC: M LAB REF 11:46 | PROVIDERS: ATTEND Internal Medicine | DX: I48.21 Permanent atrial fibrillation (principal) ==

== ENCOUNTER → 2021-03-23 | Outpatient (REF) | payer MEDICARE | LOC: M LAB REF 16:21 | PROVIDERS: ATTEND Internal Medicine | DX: K70.30 Alcoholic cirrhosis of liver without ascites (principal) ==

== ENCOUNTER → 2021-10-16 | Outpatient (CLI) | payer MEDICARE | LOC: M RAD 09:09 | PROVIDERS: ATTEND Internal Medicine | DX: K70.30 Alcoholic cirrhosis of liver without ascites (principal) ==

== ENCOUNTER → 2022-03-23 | Outpatient (REF) | payer MEDICARE ==
[~2022-03-23] MED LIST changes: -GLUCTAB6 PO; +GLUCTAB7 PO
== END ==
LOC: M LAB REF 17:43
PROVIDERS: ATTEND Internal Medicine
DX: K70.30 Alcoholic cirrhosis of liver without ascites (principal)

== ENCOUNTER → 2022-04-19 | Outpatient (REF) | payer MEDICARE ==
[2022-04-19 19:06] LABS: APPEARANCE, URINE CLOUDY (CLEAR); BACTERIA, URINE AUTO NEGATIVE (NEGATIVE); BILIRUBIN, URINE AUTO NEGATIVE (NEGATIVE); BLOOD, URINE BLOOD NEGATIVE (NEGATIVE); COLOR, URINE AMBER (YELLOW); GLUCOSE, URINE (UA) AUTO NEGATIVE (NEGATIVE); KETONE, URINE AUTO TRACE mg/dL (NEGATIVE); LEUKOCYTE ESTERASE, URINE AUTO NEGATIVE (NEGATIVE); MUCUS, URINE SMALL (NEGATIVE); NITRITE, URINE AUTO NEGATIVE (NEGATIVE); PROTEIN, URINE AUTO 1+ mg/dL (NEGATIVE); RBC, URINE AUTO 1 /HPF (0-3); SPECIFIC GRAVITY URINE AUTO 1.021 (1.002-1.035); SQUAMOUS EPITHELIAL CELL UR AU 0 /HPF (0-6); WBC, URINE AUTO 1 /HPF (0-3)
== END ==
LOC: M LAB REF 16:31
PROVIDERS: ATTEND Internal Medicine
DX: Z01.818 Encounter for other preprocedural examination (principal)

== ENCOUNTER 2022-05-07 20:43 | Observation (INO) | payer MEDICARE ==
[~2022-05-07] VITALS: Ht 177.8 cm; Wt 80.6 kg
[2022-05-07] MEDS ORDERED: BISOPROLOL FUM 2.5 MG PER 1/2TAB PO SCH (21:00)
[2022-05-07 22:22] LABS: BASO % 0.6 % (0.0-1.0); EOS # 0.2 10^3/uL (0.0-0.5); EOS % 4.3 % (0.0-3.0); HEMATOCRIT 38.2 % (42.0-52.0); LYMPH # 0.8 10^3/uL (1.5-5.0); MEAN CORPUSCULAR HEMOGLOBIN 33.4 pg (27.0-33.0); MEAN CORPUSCULAR VOLUME 98.2 fl (80.0-96.0); MONO # 0.8 10^3/uL (0.0-0.8); MONO % 17.2 % (2.0-8.0); NEUTROPHILS # 2.8 10^3/uL (1.5-8.5); NEUTROPHILS % 60.7 % (36.0-66.0); PLATELET COUNT, AUTOMATED 118 10^3/uL (150-450); RED BLOOD COUNT 3.89 10^6/uL (4.30-6.10); WHITE BLOOD COUNT 4.6 10^3/uL (4.0-10.0)
[2022-05-07 22:30] LABS: PARTIAL THROMBOPLASTIN TIME 32.1 SECONDS (25.9-37.0)
[2022-05-07] MEDS ORDERED: ISOVUE-370 76% 100ML VIAL As Ordered ONE (22:58)
[2022-05-07 23:03] LABS: CK-MB VALUE MASS 1.3 NG/ML (<3.6); MB/CK RELATIVE INDEX 2.03 (< OR =4)
[2022-05-08] MEDS ORDERED: ZOLP5TAB PO (00:34)
[2022-05-08] MEDS ORDERED: EQL50TAB2 PO (00:34)
[2022-05-08] MEDS ORDERED: HOME MED LIST COMPLETE! XX SCH (00:35)
[2022-05-08] MEDS ORDERED: ASPIRIN 81 MG CHEW TABLET PO ONE (00:40)
[2022-05-08 00:46] LABS: INR 1.24; PROTHROMBIN TIME 16.1 SECONDS (12.7-14.5)
[2022-05-08 01:36] LABS: RSV AMPLIFICATION NEGATIVE (NEGATIVE)
[2022-05-08] MEDS ORDERED: zolPIDEM TARTRATE 5 MG TAB PO PRN (02:25)
[2022-05-08] MEDS ORDERED: ACETAMINOPHEN TAB 650MG DOSE (2X325MG) PO PRN (02:25)
[2022-05-08] MEDS ORDERED: ATORVASTATIN 20 MG TAB PO ONE (03:00)
[2022-05-08 04:20] VITALS: BP 143/85
[2022-05-08 04:58] VITALS: BP 143/85
[2022-05-08 06:59] LABS: HEMATOCRIT 37.5 % (42.0-52.0); HEMOGLOBIN 12.7 g/dl (13.5-17.5); MEAN CORPUSCULAR HEMOGLOBIN 33.4 pg (27.0-33.0); MEAN CORPUSCULAR HGB CONC 33.9 g/dl (32.0-36.5); MEAN CORPUSCULAR VOLUME 98.7 fl (80.0-96.0); PLATELET COUNT, AUTOMATED 106 10^3/uL (150-450); WHITE BLOOD COUNT 3.6 10^3/uL (4.0-10.0)
[2022-05-08 07:09] LABS: HEMOGLOBIN A1c 5.2 %
[2022-05-08 07:24] LABS: CHOLESTEROL RISK RATIO 1.894 (<5)
[2022-05-08 07:26] LABS: BLOOD UREA NITROGEN 20 MG/DL (7-18); CALCIUM LEVEL 9.1 MG/DL (8.8-10.2); CARBON DIOXIDE LEVEL 26 MEQ/L (21-32); CHLORIDE LEVEL 103 MEQ/L (98-107); CREATININE FOR GFR 0.72 MG/DL (0.70-1.30); GLOMERULAR FILTRATION RATE > 60.0 (>42); GLUCOSE, FASTING 82 MG/DL (70-100); MAGNESIUM LEVEL 1.7 MG/DL (1.8-2.4); POTASSIUM SERUM 4.1 MEQ/L (3.5-5.1); SODIUM LEVEL 135 MEQ/L (136-145)
[2022-05-08] MEDS ORDERED: DIGOXIN 0.125 MG TAB PO SCH (09:00)
[2022-05-08] MEDS ORDERED: ASPIRIN 81 MG CHEW TABLET PO SCH (09:00)
[2022-05-08] MEDS ORDERED: APIXABAN 5 MG TAB (ELIQUIS) PO SCH (09:00)
[2022-05-08 09:22] LABS: C REACTIVE PROTEIN QUANTITATIV < 0.30 MG/DL (0.00-0.30)
[2022-05-08] MEDS ORDERED: PROHANCE 279.3MG/ML 15ML VIAL As Ordered ONE (10:21)
[2022-05-08] MEDS ORDERED: PROHANCE 279.3MG/ML 5ML VIAL As Ordered ONE (10:21)
[2022-05-08 10:55] LABS: ERYTHROCYTE SEDIMENTATION RATE 11 mm/hr (0-20)
[2022-05-08] MEDS ORDERED: ASPI81CH8 PO (14:22)
[2022-05-08] MEDS ORDERED: ATORVASTATIN 20 MG TAB PO SCH (21:00)
[2022-05-08] MEDS ORDERED: TAMSULOSIN 0.4 MG CAP PO SCH (21:00)
== END 2022-05-08 15:19 | disposition home or self-care (01) ==
LOC: EDBD 20:43 → M ED 20:43 → M ED INP 05-08 02:25 → ENRESERVDT 05-08 02:51 → ENRESERVTM 05-08 02:51 → M MSPAV 05-08 04:17
PROVIDERS: ADMIT Family Medicine; ATTEND Internal Medicine
DX: R27.8 Other lack of coordination (principal); G45.9 Transient cerebral ischemic attack, unspecified; I48.20 Chronic atrial fibrillation, unspecified; N40.0 Benign prostatic hyperplasia without lower urinary tract symptoms; D69.6 Thrombocytopenia, unspecified; Z85.46 Personal history of malignant neoplasm of prostate; Z92.3 Personal history of irradiation; Z79.82 Long term (current) use of aspirin; Z79.01 Long term (current) use of anticoagulants; Z79.899 Other long term (current) drug therapy
CPT/HCPCS: 36415; 70450; 70496; 70498; 70544; 70553; 71045; 80047; 80048; 80061; 82550; 82553; 83036; 83735; 84484; 85025; 85027; 85610; 85652; 85730; 86140; 87631; 93005; 93041; 93306; 94760; 99285; A9576; G0378; Q9967

== ENCOUNTER → 2022-12-01 | Outpatient (CLI) | payer MEDICARE ==
[~2022-12-01] MED LIST changes: +ASPI81CH8 PO; +EQL50TAB2 PO; +ZOLP5TAB PO
== END ==
LOC: M RAD 07:18
PROVIDERS: ATTEND Internal Medicine
DX: K70.30 Alcoholic cirrhosis of liver without ascites (principal)

== ENCOUNTER → 2023-05-19 | Outpatient (CLI) | payer MEDICARE | LOC: M RAD 08:05 | PROVIDERS: ATTEND Internal Medicine | DX: K74.60 Unspecified cirrhosis of liver (principal) ==

== ENCOUNTER 2023-09-15 07:59 | Day surgery (SDC) | payer MEDICARE ==
[~2023-09-15] VITALS: Ht 177.8 cm; Wt 78.3 kg
[~2023-09-15 07:59] MED LIST changes: +LIDOCAINE 2% 100MG/5ML SDV (FOR ANES.) As Ordered ONE; +propofoL 200 MG/20 ML VIAL As Ordered ONE
[2023-09-15] MEDS: NS 1,000 ML IV ONE (08:14)
[2023-09-15 09:37] VITALS: TEMP 97.4
[2023-09-15 09:55] VITALS: BP 131/69; O2SAT 100
== END 2023-09-15 10:05 | disposition home or self-care (01) ==
LOC: M OPP 07:59
PROVIDERS: ATTEND Surgery
DX: Z12.11 Encounter for screening for malignant neoplasm of colon (principal); K21.00 Gastro-esophageal reflux disease with esophagitis, without bleeding; Z85.038 Personal history of other malignant neoplasm of large intestine; K31.89 Other diseases of stomach and duodenum; K90.0 Celiac disease; Z85.46 Personal history of malignant neoplasm of prostate; K30 Functional dyspepsia; I48.91 Unspecified atrial fibrillation; Z79.01 Long term (current) use of anticoagulants; Z79.899 Other long term (current) drug therapy; Z86.73 Personal history of transient ischemic attack (TIA), and cerebral infarction without residual deficits; Z87.891 Personal history of nicotine dependence

== ENCOUNTER → 2023-09-27 | Outpatient (REF) | payer MEDICARE ==
[~2023-09-27] MED LIST changes: -LIDOCAINE 2% 100MG/5ML SDV (FOR ANES.) As Ordered ONE; -propofoL 200 MG/20 ML VIAL As Ordered ONE
== END ==
LOC: M LAB REF 13:19
PROVIDERS: ATTEND Internal Medicine
DX: I48.21 Permanent atrial fibrillation (principal)

== ENCOUNTER 2023-10-08 19:24 | Emergency (ER) | payer MEDICARE ==
[~2023-10-08] VITALS: Ht 177.8 cm; Wt 88.2 kg
[2023-10-08 20:09] LABS: HEMATOCRIT 33.8 % (42.0-52.0); HEMOGLOBIN 11.7 g/dl (13.5-17.5); LYMPH # 0.3 10^3/uL (1.5-5.0); LYMPH % 4.9 % (24.0-44.0); MEAN CORPUSCULAR HEMOGLOBIN 33.8 pg (27.0-33.0); MEAN CORPUSCULAR HGB CONC 34.6 g/dl (32.0-36.5); MEAN CORPUSCULAR VOLUME 97.7 fl (80.0-96.0); MONO # 0.3 10^3/uL (0.0-0.8); MONO % 3.9 % (2.0-8.0); NEUTROPHILS # 6.1 10^3/uL (1.5-8.5); NEUTROPHILS % 91.1 % (36.0-66.0); RED BLOOD COUNT 3.46 10^6/uL (4.30-6.10); WHITE BLOOD COUNT 6.7 10^3/uL (4.0-10.0)
[2023-10-08 20:26] LABS: PLATELET COUNT, AUTOMATED 95 10^3/uL (150-450)
[2023-10-08 20:30] LABS: LIPASE 80 U/L (12-53)
[2023-10-08 20:32] LABS: CPK CREATINE PHOSPHOKINASE 89 U/L (46-171)
[2023-10-08 20:33] LABS: ALBUMIN 3.5 G/DL (3.2-5.2); ALKALINE PHOSPHATASE 117 U/L (46-116); ALT/SGPT 34 U/L (7.0-40); AST/SGOT 51 U/L (<34); BILIRUBIN,DIRECT 0.8 MG/DL (<0.4); BILIRUBIN,TOTAL 1.9 MG/DL (0.3-1.2); BLOOD UREA NITROGEN 24 MG/DL (9-23); CALCIUM LEVEL 8.9 MG/DL (8.3-10.6); CARBON DIOXIDE LEVEL 26 MMOL/L (20-31); CHLORIDE LEVEL 103 MMOL/L (98-107); CREATININE FOR GFR 0.82 MG/DL (0.70-1.30); GLOMERULAR FILTRATION RATE > 60.0 (>42); GLUCOSE, FASTING 170 MG/DL (74-106); MB/CK RELATIVE INDEX 1.12 (< OR =4); POTASSIUM SERUM 4.3 MMOL/L (3.5-5.1); SODIUM LEVEL 132 MMOL/L (136-145); TOTAL PROTEIN 7.1 G/DL (5.7-8.2)
[2023-10-08] MEDS ORDERED: ASPIRIN 81MG CHEW TABLET PO ONE (20:35)
[2023-10-08 21:05] LABS: INR 1.49; PROTHROMBIN TIME 17.6 SECONDS (12.5-14.5)
[2023-10-08] MEDS ORDERED: ISOVUE-370 76% 100ML VIAL As Ordered ONE (21:05)
[2023-10-08 21:06] LABS: PARTIAL THROMBOPLASTIN TIME 29.9 SECONDS (24.8-34.2)
[2023-10-08 21:36] LABS: CK-MB VALUE MASS 1.1 NG/ML (<3.6); MB/CK RELATIVE INDEX 1.27 (< OR =4)
[2023-10-08 22:31] VITALS: BP 133/79; TEMP 95.3; O2SAT 99
[2023-10-08] MEDS ORDERED: FUROSEMIDE 20MG/2ML VIAL IV ONE (22:45)
[2023-10-08] MEDS ORDERED: LASI20TA3 PO (22:47)
== END 2023-10-08 23:09 | disposition home or self-care (01) ==
LOC: M ED 19:24
DX: I50.22 Chronic systolic (congestive) heart failure (principal); I48.91 Unspecified atrial fibrillation; C61 Malignant neoplasm of prostate; Z91.02 Food additives allergy status; Z79.01 Long term (current) use of anticoagulants; Z79.82 Long term (current) use of aspirin; Z79.899 Other long term (current) drug therapy
CPT/HCPCS: 71046; 71275; 80048; 80076; 80162; 82550; 82553; 83690; 83880; 84484; 85025; 85049; 85055; 85610; 85730; 87486; 87581; 87633; 87798; 93005; 93041; 94760; 96374; 99284; J1940; Q9967

== ENCOUNTER → 2023-12-28 | Outpatient (CLI) | payer MEDICARE ==
[~2023-12-28] MED LIST changes: +LASI20TA3 PO
== END ==
LOC: M RAD 09:15
PROVIDERS: ATTEND Internal Medicine
DX: K76.9 Liver disease, unspecified (principal); N28.1 Cyst of kidney, acquired

== ENCOUNTER → 2024-01-27 | Outpatient (REF) | payer MEDICARE | LOC: M LAB REF 12:06 | PROVIDERS: ATTEND Nurse Practitioner Family | DX: I48.21 Permanent atrial fibrillation (principal); I50.20 Unspecified systolic (congestive) heart failure ==

== ENCOUNTER → 2024-02-29 | Outpatient (CLI) | payer MEDICARE | LOC: M CARPUL 14:12 | PROVIDERS: ATTEND Internal Medicine | DX: I48.21 Permanent atrial fibrillation (principal); I08.3 Combined rheumatic disorders of mitral, aortic and tricuspid valves ==

== ENCOUNTER → 2024-03-06 | Outpatient (REF) | payer MEDICARE | LOC: M LAB REF 12:11 | PROVIDERS: ATTEND Internal Medicine | DX: R60.0 Localized edema (principal); I48.21 Permanent atrial fibrillation; I50.9 Heart failure, unspecified ==

== ENCOUNTER → 2024-03-20 | Outpatient (REF) | payer MEDICARE | LOC: M LAB REF 16:31 | PROVIDERS: ATTEND Internal Medicine | DX: I48.21 Permanent atrial fibrillation (principal) ==

== ENCOUNTER → 2024-05-29 | Outpatient (CLI) | payer MEDICARE | LOC: M RAD 11:13 | PROVIDERS: ATTEND Internal Medicine | DX: M79.604 Pain in right leg (principal); R60.0 Localized edema ==

== ENCOUNTER → 2024-06-18 | Outpatient (REF) | payer MEDICARE ==
[2024-06-18 17:53] LABS: PERCENT SATURATION 9.1 % (19.7-50.0)
== END ==
LOC: M LAB REF 16:35
PROVIDERS: ATTEND Internal Medicine
DX: D64.9 Anemia, unspecified (principal)

== ENCOUNTER → 2024-06-19 | Outpatient (CLI) | payer MEDICARE | LOC: M RAD 07:58 | PROVIDERS: ATTEND Internal Medicine | DX: K74.60 Unspecified cirrhosis of liver (principal); K76.0 Fatty (change of) liver, not elsewhere classified ==

== ENCOUNTER → 2024-07-12 | Outpatient (REF) | payer MEDICARE | LOC: M LAB REF 17:47 | PROVIDERS: ATTEND Internal Medicine | DX: R06.02 Shortness of breath (principal) ==

== ENCOUNTER → 2024-07-25 | Outpatient (REF) | payer MEDICARE ==
[2024-07-25 14:23] LABS: PERCENT SATURATION 9.9 % (19.7-50.0)
== END ==
LOC: M LAB REF 13:20
PROVIDERS: ATTEND Internal Medicine
DX: D64.9 Anemia, unspecified (principal); I48.21 Permanent atrial fibrillation; I50.9 Heart failure, unspecified

== ENCOUNTER → 2024-08-14 | Outpatient (REF) | payer MEDICARE ==
[2024-08-14 17:55] LABS: PERCENT SATURATION 15.3 % (19.7-50.0)
== END ==
LOC: M LAB REF 17:24
PROVIDERS: ATTEND Internal Medicine
DX: K70.30 Alcoholic cirrhosis of liver without ascites (principal); D64.9 Anemia, unspecified

== ENCOUNTER → 2024-08-30 | Outpatient (REF) | payer MEDICARE ==
[2024-08-30 14:25] LABS: PERCENT SATURATION 14.2 % (19.7-50.0)
== END ==
LOC: M LAB REF 12:57
PROVIDERS: ATTEND Internal Medicine
DX: D72.819 Decreased white blood cell count, unspecified (principal)

== ENCOUNTER 2024-09-17 08:47 | Outpatient (CLI) | payer MEDICARE ==
[~2024-09-17] VITALS: Ht 177.8 cm; Wt 84.0 kg
[~2024-09-17 08:47] MED LIST changes: +ALBUTEROL SULFATE 2.5MG/0.5ML INH NEB SOLN INH PRN; +EPINEPHrine INJ 1 MG/ML 1ML AMP IM PRN; +diphenhydrAMINE 50MG/ML VIAL IV PRN; +methylPREDNISolone 125MG 2ML VIAL IV PRN
[2024-09-17 09:00] VITALS: BP 131/57; O2SAT 97
[2024-09-17] MEDS: IRON SUCROSE 500 MG in NS 250 ML OVER 4 HRS IV ONE (09:30)
[2024-09-17 10:30] VITALS: BP 137/72; O2SAT 96
[2024-09-17 11:30] VITALS: BP 120/65; O2SAT 98
[2024-09-17 12:30] VITALS: BP 127/71; O2SAT 98
[2024-09-17 13:45] VITALS: BP 127/81; O2SAT 96
== END 2024-09-17 14:00 ==
LOC: M INFU 08:47
PROVIDERS: ATTEND Internal Medicine
DX: D50.9 Iron deficiency anemia, unspecified (principal)
CPT/HCPCS: 96365; 96366; J1756

== ENCOUNTER → 2024-09-20 | Outpatient (REF) | payer MEDICARE ==
[~2024-09-20] MED LIST changes: -ALBUTEROL SULFATE 2.5MG/0.5ML INH NEB SOLN INH PRN; -EPINEPHrine INJ 1 MG/ML 1ML AMP IM PRN; -diphenhydrAMINE 50MG/ML VIAL IV PRN; -methylPREDNISolone 125MG 2ML VIAL IV PRN
[2024-09-20 14:37] LABS: PERCENT SATURATION 48.6 % (19.7-50.0)
== END ==
LOC: M LAB REF 13:34
PROVIDERS: ATTEND Internal Medicine
DX: I48.21 Permanent atrial fibrillation (principal); D64.9 Anemia, unspecified; I50.9 Heart failure, unspecified

== ENCOUNTER → 2024-10-04 | Outpatient (REF) | payer MEDICARE ==
[~2024-10-04] MED LIST changes: +FAMO40TA3 PO; +FERR325T19 PO; +FURO20TA2 PO; +FURO80TA2 PO; +PROBCAP14 PO; +SPIR-10 PO; +THERTAB52 PO
[2024-10-04 15:09] LABS: PERCENT SATURATION 20.7 % (19.7-50.0)
== END ==
LOC: M LAB REF 13:55
PROVIDERS: ATTEND Internal Medicine
DX: D72.819 Decreased white blood cell count, unspecified (principal)

== ENCOUNTER 2024-10-22 13:36 | Emergency (ER) | payer MEDICARE ==
[~2024-10-22] VITALS: Ht 177.8 cm; Wt 80.7 kg
[2024-10-22 15:09] VITALS: BP 118/61; TEMP 98.4; O2SAT 97
== END 2024-10-22 15:10 | disposition home or self-care (01) ==
LOC: M ED 13:36
DX: S01.03XA Puncture wound without foreign body of scalp, initial encounter (principal); W22.8XXA Striking against or struck by other objects, initial encounter; Y92.009 Unspecified place in unspecified non-institutional (private) residence as the place of occurrence of the external cause; Y93.9 Activity, unspecified; Y99.9 Unspecified external cause status; I48.91 Unspecified atrial fibrillation; I10 Essential (primary) hypertension; Z86.73 Personal history of transient ischemic attack (TIA), and cerebral infarction without residual deficits; Z79.01 Long term (current) use of anticoagulants; Z79.899 Other long term (current) drug therapy; Z91.018 Allergy to other foods

== ENCOUNTER 2024-10-25 09:28 | Day surgery (SDC) | payer MEDICARE ==
[~2024-10-25] VITALS: Ht 177.8 cm; Wt 80.7 kg
[~2024-10-25 09:28] MED LIST changes: +LIDOCAINE 2% 100MG/5ML SDV (FOR ANES.) As Ordered ONE; +propofoL 200 MG/20 ML VIAL As Ordered ONE
[2024-10-25 10:29] VITALS: TEMP 97.1
[2024-10-25 10:50] VITALS: BP 113/55; O2SAT 100
== END 2024-10-25 10:53 | disposition home or self-care (01) ==
LOC: M OPP 09:28
PROVIDERS: ATTEND Surgery
DX: K21.00 Gastro-esophageal reflux disease with esophagitis, without bleeding (principal); K29.50 Unspecified chronic gastritis without bleeding; K29.80 Duodenitis without bleeding; D50.9 Iron deficiency anemia, unspecified; I48.91 Unspecified atrial fibrillation; Z91.018 Allergy to other foods; Z79.01 Long term (current) use of anticoagulants; Z79.899 Other long term (current) drug therapy; Z86.73 Personal history of transient ischemic attack (TIA), and cerebral infarction without residual deficits; Z87.891 Personal history of nicotine dependence

== ENCOUNTER → 2024-11-08 | Outpatient (REF) | payer MEDICARE ==
[~2024-11-08] MED LIST changes: -LIDOCAINE 2% 100MG/5ML SDV (FOR ANES.) As Ordered ONE; -propofoL 200 MG/20 ML VIAL As Ordered ONE
== END ==
LOC: M LAB REF 16:59
PROVIDERS: ATTEND Nurse Practitioner Family
DX: R06.02 Shortness of breath (principal)

== ENCOUNTER → 2024-11-13 | Outpatient (REF) | payer MEDICARE ==
[2024-11-13 20:55] LABS: PERCENT SATURATION 43.8 % (19.7-50.0)
== END ==
LOC: M LAB REF 18:19
PROVIDERS: ATTEND Internal Medicine
DX: D50.9 Iron deficiency anemia, unspecified (principal)

== ENCOUNTER → 2024-12-05 | Outpatient (REF) | payer MEDICARE | LOC: M LAB REF 12:26 | PROVIDERS: ATTEND Internal Medicine | DX: I48.21 Permanent atrial fibrillation (principal); I50.33 Acute on chronic diastolic (congestive) heart failure ==

== ENCOUNTER → 2024-12-12 | Outpatient (REF) | payer MEDICARE | LOC: M LAB REF 12:12 | PROVIDERS: ATTEND Internal Medicine | DX: I48.21 Permanent atrial fibrillation (principal); R06.02 Shortness of breath ==

== ENCOUNTER → 2024-12-13 | Outpatient (CLI) | payer MEDICARE | LOC: M RAD 13:50 | PROVIDERS: ATTEND Physician Assistant | DX: R06.02 Shortness of breath (principal); I50.32 Chronic diastolic (congestive) heart failure; R91.8 Other nonspecific abnormal finding of lung field ==

== ENCOUNTER → 2024-12-14 | Outpatient (CLI) | payer MEDICARE | LOC: M CARPUL 16:59 | PROVIDERS: ATTEND Physician Assistant | DX: R06.02 Shortness of breath (principal); R01.1 Cardiac murmur, unspecified; R07.2 Precordial pain; I48.91 Unspecified atrial fibrillation; I08.3 Combined rheumatic disorders of mitral, aortic and tricuspid valves; I31.39 Other pericardial effusion (noninflammatory) ==

== ENCOUNTER → 2024-12-17 | Outpatient (REF) | payer MEDICARE ==
[2024-12-17 18:41] LABS: BLOOD UREA NITROGEN 30 MG/DL (9-23); CALCIUM LEVEL 8.3 MG/DL (8.3-10.6); CARBON DIOXIDE LEVEL 32 MMOL/L (20-31); CHLORIDE LEVEL 103 MMOL/L (98-107); CREATININE FOR GFR 1.15 MG/DL (0.70-1.30); GLOMERULAR FILTRATION RATE > 60.0 (>35); GLUCOSE, FASTING 106 MG/DL (74-106); POTASSIUM SERUM 3.5 MMOL/L (3.5-5.1); SODIUM LEVEL 141 MMOL/L (136-145)
== END ==
LOC: M LAB REF 12:07
PROVIDERS: ATTEND Internal Medicine
DX: I50.33 Acute on chronic diastolic (congestive) heart failure (principal); I48.21 Permanent atrial fibrillation

== ENCOUNTER → 2024-12-26 | Outpatient (REF) | payer MEDICARE ==
[~2024-12-26] MED LIST changes: +ASPI81TA26 PO; +EPLE25TA15 PO; +EPLE50TA12 PO; +TORS20TA2 PO
[2024-12-26 15:05] LABS: PERCENT SATURATION 6.4 % (19.7-50.0)
== END ==
LOC: M LAB REF 14:08
PROVIDERS: ATTEND Internal Medicine
DX: D50.9 Iron deficiency anemia, unspecified (principal); I50.33 Acute on chronic diastolic (congestive) heart failure

== ENCOUNTER → 2024-12-27 | Outpatient (CLI) | payer MEDICARE ==
[~2024-12-27] MED LIST changes: -ASPI81TA26 PO; -EPLE25TA15 PO; -EPLE50TA12 PO; -TORS20TA2 PO
[2024-12-27 11:16] LABS: CALCIUM LEVEL 8.7 MG/DL (8.3-10.6); CREATININE FOR GFR 1.35 MG/DL (0.70-1.30); GLOMERULAR FILTRATION RATE 53.1 (>35); POTASSIUM SERUM 4.4 MMOL/L (3.5-5.1)
== END ==
LOC: M PLALAB 08:59
PROVIDERS: ATTEND Physician Assistant
DX: I50.32 Chronic diastolic (congestive) heart failure (principal)

== ENCOUNTER 2025-01-01 14:29 | Observation (INO) | payer MEDICARE ==
[~2025-01-01] VITALS: Ht 177.8 cm; Wt 81.3 kg
[2025-01-01] VITALS (7 sets, daily range): BP systolic 116–125; BP diastolic 56–76; TEMP 96.8–98.1; O2SAT 99–100
[~2025-01-01 14:29] MED LIST changes: +EPLE50TA12 PO; -FLOM0.4C39 PO; +TAMS-18 PO; +TORS20TA2 PO
[2025-01-01 15:33] LABS: HEMATOCRIT 21.3 % (42.0-52.0); MEAN CORPUSCULAR HEMOGLOBIN 28.9 pg (27.0-33.0); MEAN CORPUSCULAR HGB CONC 31.5 g/dl (32.0-36.5); MEAN CORPUSCULAR VOLUME 91.8 fl (80.0-96.0); PLATELET COUNT, AUTOMATED 155 10^3/uL (150-450); RED BLOOD COUNT 2.32 10^6/uL (4.30-6.10)
[2025-01-01 15:40] LABS: HEMOGLOBIN 6.7 g/dl (13.5-17.5)
[2025-01-01 15:55] LABS: BASOPHILS 3 % (0-1); EOSINOPHILS 7 % (0-3); LYMPHOCYTES 36 % (16-44); MONOCYTES 5 % (0-5); NEUTROPHILS 49 % (28-66)
[2025-01-01 15:56] LABS: HYPOCHROMASIA 1+; PLATELET ESTIMATE NORMAL (NORMAL)
[2025-01-01 16:01] LABS: CALCIUM LEVEL 8.6 MG/DL (8.3-10.6); CREATININE FOR GFR 0.98 MG/DL (0.70-1.30); POTASSIUM SERUM 4.2 MMOL/L (3.5-5.1)
[2025-01-01] MEDS ORDERED: EPLE25TA15 PO (17:30)
[2025-01-01] MEDS ORDERED: ASPI81TA26 PO (17:30)
[2025-01-01] MEDS ORDERED: HOME MED LIST COMPLETE! XX SCH (17:35)
[2025-01-01] MEDS ORDERED: zolPIDEM TARTRATE 5 MG TAB PO PRN (17:40)
[2025-01-01] MEDS: FAMOTIDINE 20 MG TAB PO SCH (21:00)
[2025-01-01] MEDS: TAMSULOSIN 0.4 MG CAP PO SCH (21:00)
[2025-01-01] MEDS: BISOPROLOL FUM 2.5 MG PER 1/2TAB PO SCH (21:00)
[2025-01-01] MEDS: ASPIRIN 81MG ENTERIC TABLET PO SCH (21:00)
[2025-01-01] MEDS: FUROSEMIDE 40MG/4ML VIAL IV ONE (21:25)
[2025-01-01] MEDS: IRON SUCROSE 100MG/5ML VIAL IV ONE (22:00)
[2025-01-02] VITALS: BP 112/70; TEMP 97.6; O2SAT 100
[2025-01-02] MEDS ORDERED: DIGOXIN 0.125 MG TAB PO SCH (09:00)
[2025-01-02] MEDS ORDERED: MAGNESIUM GLUCONATE 500 MG TAB PO SCH (09:00)
[2025-01-02] MEDS ORDERED: TORSEMIDE 20 MG TAB PO SCH (09:00)
== END 2025-01-02 00:28 | disposition left against medical advice (07) ==
LOC: M ED 14:29 → M ED INP 17:04 → INTOOBSV 17:04 → M PCU 22:02
PROVIDERS: ADMIT Student in an Organized Health Care Education/Training Program; ATTEND Student in an Organized Health Care Education/Training Program
DX: D50.9 Iron deficiency anemia, unspecified (principal); Z53.8 Procedure and treatment not carried out for other reasons; D46.A Refractory cytopenia with multilineage dysplasia; I10 Essential (primary) hypertension; I48.91 Unspecified atrial fibrillation; Z79.01 Long term (current) use of anticoagulants; I42.6 Alcoholic cardiomyopathy; Z79.82 Long term (current) use of aspirin; Z79.899 Other long term (current) drug therapy; Z87.891 Personal history of nicotine dependence
CPT/HCPCS: 36415; 36430; 80048; 80053; 82607; 82728; 82746; 83550; 84238; 85025; 85046; 86850; 86900; 86901; 86920; 96374; 96375; 99284; G0378; G0463; J1756; J1938; P9016

== ENCOUNTER → 2025-01-08 | Outpatient (REF) | payer MEDICARE ==
[~2025-01-08] MED LIST changes: +ASPI81TA26 PO; +EPLE25TA15 PO
[2025-01-08 16:33] LABS: ALBUMIN 2.7 G/DL (3.2-5.2); BILIRUBIN,TOTAL 1.2 MG/DL (0.3-1.2); CALCIUM LEVEL 8.2 MG/DL (8.3-10.6); CREATININE FOR GFR 0.99 MG/DL (0.70-1.30); POTASSIUM SERUM 3.7 MMOL/L (3.5-5.1); TOTAL PROTEIN 6.2 G/DL (5.7-8.2)
[2025-01-08 16:40] LABS: BASO % 0.3 % (0.0-1.0); EOS # 0.1 10^3/uL (0.0-0.5); EOS % 4.8 % (0.0-3.0); HEMATOCRIT 21.7 % (42.0-52.0); LYMPH # 0.6 10^3/uL (1.5-5.0); LYMPH % 21.8 % (24.0-44.0); MEAN CORPUSCULAR HEMOGLOBIN 29.3 pg (27.0-33.0); MEAN CORPUSCULAR HGB CONC 31.3 g/dl (32.0-36.5); MEAN CORPUSCULAR VOLUME 93.5 fl (80.0-96.0); MONO # 0.6 10^3/uL (0.0-0.8); MONO % 21.8 % (2.0-8.0); NEUTROPHILS # 1.5 10^3/uL (1.5-8.5); PLATELET COUNT, AUTOMATED 137 10^3/uL (150-450); RED BLOOD COUNT 2.32 10^6/uL (4.30-6.10); WHITE BLOOD COUNT 2.9 10^3/uL (4.0-10.0)
[2025-01-08 17:49] LABS: HEMOGLOBIN 6.8 g/dl (13.5-17.5)
== END ==
LOC: M LAB REF 16:16
PROVIDERS: ATTEND Internal Medicine
DX: D72.819 Decreased white blood cell count, unspecified (principal); I50.33 Acute on chronic diastolic (congestive) heart failure; I48.21 Permanent atrial fibrillation

== ENCOUNTER → 2025-01-15 | Outpatient (REF) | payer MEDICARE ==
[2025-01-15 12:06] LABS: INR 1.43; PROTHROMBIN TIME 17.7 SECONDS (12.5-14.5)
[2025-01-15 12:33] LABS: ALBUMIN 2.8 G/DL (3.2-5.2); BILIRUBIN,TOTAL 1.1 MG/DL (0.3-1.2); CREATININE FOR GFR 0.94 MG/DL (0.70-1.30); POTASSIUM SERUM 4.5 MMOL/L (3.5-5.1); TOTAL PROTEIN 6.2 G/DL (5.7-8.2)
== END ==
LOC: M LAB REF 11:30
PROVIDERS: ATTEND Internal Medicine
DX: I50.9 Heart failure, unspecified (principal); Z79.01 Long term (current) use of anticoagulants

== ENCOUNTER → 2025-01-24 | Outpatient (CLI) | payer MEDICARE ==
[2025-01-24 17:33] LABS: CALCIUM LEVEL 8.6 MG/DL (8.3-10.6); CREATININE FOR GFR 1.05 MG/DL (0.70-1.30); GLOMERULAR FILTRATION RATE 71.8 (>35); POTASSIUM SERUM 3.8 MMOL/L (3.5-5.1)
== END ==
LOC: M PLALAB 13:44
PROVIDERS: ATTEND Physician Assistant
DX: R06.02 Shortness of breath (principal); I50.32 Chronic diastolic (congestive) heart failure

== ENCOUNTER → 2025-01-30 | Outpatient (CLI) | payer MEDICARE | LOC: M PLAIMG 14:16 | PROVIDERS: ATTEND Internal Medicine | DX: K70.30 Alcoholic cirrhosis of liver without ascites (principal) ==

== ENCOUNTER → 2025-03-08 | Outpatient (REF) | payer MEDICARE ==
[~2025-03-08] MED LIST changes: +CARV3.12 PO; -EQL50TAB2 PO; +MAG100TA PO; +VITA1TAB82 PO
[2025-03-08 14:48] LABS: PERCENT SATURATION 11.3 % (19.7-50.0)
== END ==
LOC: M LAB REF 14:11
PROVIDERS: ATTEND Internal Medicine
DX: D50.9 Iron deficiency anemia, unspecified (principal)

== ENCOUNTER 2025-03-18 13:32 | Observation (INO) | payer MEDICARE ==
[~2025-03-18] VITALS: Ht 177.8 cm; Wt 76.5 kg
[2025-03-18 14:20] LABS: VENOUS BASE EXCESS 0.8 (-2.0-2.0); VENOUS HCO3 24.3 MMOL/L (23.0-27.0); VENOUS O2 SATURATION 93.3 % (60.0-80.0); VENOUS PARTIAL PRESSURE CO2 33.5 mmHg (38.0-50.0); VENOUS PARTIAL PRESSURE O2 70.5 mmHg (30.0-50.0); VENOUS PH 7.479 UNITS (7.330-7.430); VENOUS STANDARD HCO3 25.2 MMOL/L; VENOUS TOTAL CO2 25.4 MMOL/L (24.0-28.0)
[2025-03-18 14:27] LABS: BASO # 0.0 10^3/uL (0.0-0.2); BASO % 0.4 % (0.0-1.0); EOS # 0.2 10^3/uL (0.0-0.5); EOS % 6.4 % (0.0-3.0); LYMPH # 0.6 10^3/uL (1.5-5.0); LYMPH % 20.1 % (24.0-44.0); MONO # 0.6 10^3/uL (0.0-0.8); MONO % 19.8 % (2.0-8.0); NEUTROPHILS # 1.5 10^3/uL (1.5-8.5); NEUTROPHILS % 52.9 % (36.0-66.0); PLATELET COUNT, AUTOMATED 151 10^3/uL (150-450)
[2025-03-18 14:42] LABS: CK-MB VALUE MASS 1.6 NG/ML (<3.6)
[2025-03-18 14:43] LABS: ETHYL ALCOHOL (ETHANOL) 0.004 % (0.000-0.010)
[2025-03-18 14:44] LABS: INR 1.45
[2025-03-18 14:45] LABS: ALT/SGPT 47.0 U/L (7.0-40); AST/SGOT 74.0 U/L (<34); CALCIUM LEVEL 8.4 MG/DL (8.3-10.6); CARBON DIOXIDE LEVEL 27.0 MMOL/L (20-31); CHLORIDE LEVEL 104.0 MMOL/L (98-107); CREATININE FOR GFR 0.98 MG/DL (0.70-1.30); GLOMERULAR FILTRATION RATE 78.0 (>35); POTASSIUM SERUM 4.0 MMOL/L (3.5-5.1); SODIUM LEVEL 141.0 MMOL/L (136-145)
[2025-03-18 14:49] LABS: CPK CREATINE PHOSPHOKINASE 110.0 U/L (46-171); MB/CK RELATIVE INDEX 1.45 (< OR =4)
[2025-03-18] MEDS ORDERED: HOME MED LIST COMPLETE! XX SCH (15:20)
[2025-03-18 18:30] VITALS: BP 123/59; TEMP 94.6; O2SAT 100
[2025-03-18 18:45] VITALS: BP 126/60; TEMP 97.7; O2SAT 100
[2025-03-18] MEDS: FAMOTIDINE 20 MG TAB PO SCH (21:00)
[2025-03-18] MEDS: TAMSULOSIN 0.4 MG CAP PO SCH (21:00)
[2025-03-18 21:10] VITALS: BP 118/59; TEMP 97.2; O2SAT 100
[2025-03-18 23:30] VITALS: BP 125/57; TEMP 97.2; O2SAT 98
[2025-03-19] MEDS ORDERED: DIGOXIN 0.125 MG TAB PO SCH (09:00)
[2025-03-19] MEDS ORDERED: TORSEMIDE 20 MG TAB PO SCH (09:00)
== END 2025-03-18 23:45 | disposition left against medical advice (07) ==
LOC: M ED 13:32 → M ED INP 13:33
PROVIDERS: ADMIT Student in an Organized Health Care Education/Training Program; ATTEND Student in an Organized Health Care Education/Training Program
DX: K70.30 Alcoholic cirrhosis of liver without ascites (principal); D50.9 Iron deficiency anemia, unspecified; I48.91 Unspecified atrial fibrillation; Z79.01 Long term (current) use of anticoagulants; I42.6 Alcoholic cardiomyopathy; I10 Essential (primary) hypertension; D61.818 Other pancytopenia; Z87.891 Personal history of nicotine dependence; Z79.82 Long term (current) use of aspirin; Z79.899 Other long term (current) drug therapy; Z91.038 Other insect allergy status
CPT/HCPCS: 36430; 71045; 80053; 80162; 82077; 82248; 82550; 82553; 82803; 83550; 83605; 83690; 84484; 85014; 85018; 85025; 85384; 85610; 85730; 86850; 86900; 86901; 86920; 93005; 93041; 94760; 99285; G0378; P9016

== ENCOUNTER → 2025-03-18 | Outpatient (REF) | payer MEDICARE ==
[2025-03-18 14:23] LABS: INR 1.5
[2025-03-18 14:24] LABS: DIGOXIN LEVEL 0.6 NG/ML (0.8-2.0); IRON (FE) 19.0 UG/DL (65-175); PERCENT SATURATION 6.4 % (19.7-50.0)
== END ==
LOC: M LAB REF 14:05
PROVIDERS: ATTEND Internal Medicine
DX: K70.30 Alcoholic cirrhosis of liver without ascites (principal); D50.9 Iron deficiency anemia, unspecified

== ENCOUNTER → 2025-04-01 | Outpatient (REF) | payer MEDICARE ==
[2025-04-01 15:50] LABS: IRON (FE) 118.0 UG/DL (65-175); PERCENT SATURATION 40.1 % (19.7-50.0)
== END ==
LOC: M LAB REF 14:28
PROVIDERS: ATTEND Internal Medicine
DX: D50.9 Iron deficiency anemia, unspecified (principal)

== ENCOUNTER → 2025-04-12 | Outpatient (REF) | payer MEDICARE ==
[2025-04-12 14:42] LABS: IRON (FE) 90.0 UG/DL (65-175); PERCENT SATURATION 29.5 % (19.7-50.0)
== END ==
LOC: M LAB REF 13:55
PROVIDERS: ATTEND Internal Medicine
DX: D50.9 Iron deficiency anemia, unspecified (principal)

== ENCOUNTER → 2025-04-30 | Outpatient (REF) | payer MEDICARE ==
[2025-04-30 15:28] LABS: IRON (FE) 85.0 UG/DL (65-175); PERCENT SATURATION 26.2 % (19.7-50.0)
== END ==
LOC: M LAB REF 14:47
PROVIDERS: ATTEND Internal Medicine
DX: D64.9 Anemia, unspecified (principal)

== ENCOUNTER → 2025-05-15 | Outpatient (REF) | payer MEDICARE ==
[2025-05-15 16:03] LABS: IRON (FE) 74.0 UG/DL (65-175); PERCENT SATURATION 24.6 % (19.7-50.0)
== END ==
LOC: M LAB REF 14:30
PROVIDERS: ATTEND Internal Medicine
DX: D64.9 Anemia, unspecified (principal)

== ENCOUNTER → 2025-05-29 | Outpatient (REF) | payer MEDICARE ==
[~2025-05-29] MED LIST changes: -ZOLP5TAB PO; +ZOLP5TAB9 PO
[2025-05-29 14:38] LABS: IRON (FE) 68.0 UG/DL (65-175); PERCENT SATURATION 21.8 % (19.7-50.0)
== END ==
LOC: M LAB REF 14:09
PROVIDERS: ATTEND Internal Medicine
DX: D50.8 Other iron deficiency anemias (principal)

== ENCOUNTER → 2025-06-17 | Outpatient (REF) | payer MEDICARE ==
[2025-06-17 15:09] LABS: IRON (FE) 64.0 UG/DL (65-175); PERCENT SATURATION 20.3 % (19.7-50.0)
== END ==
LOC: M LAB REF 14:18
PROVIDERS: ATTEND Internal Medicine
DX: D64.9 Anemia, unspecified (principal)

== ENCOUNTER → 2025-06-25 | Outpatient (REF) | payer MEDICARE ==
[2025-06-25 16:13] LABS: DIGOXIN LEVEL < 0.1 NG/ML (0.8-2.0)
[2025-06-25 16:15] LABS: VITAMIN B12 LEVEL 763 PG/ML (211-911)
[2025-06-25 16:48] LABS: HEPATITIS C VIRUS ABY INDEX 0.09 INDEX (<0.8)
== END ==
LOC: M LAB REF 15:13
PROVIDERS: ATTEND Internal Medicine
DX: K70.30 Alcoholic cirrhosis of liver without ascites (principal); D50.9 Iron deficiency anemia, unspecified; I50.32 Chronic diastolic (congestive) heart failure; Z11.59 Encounter for screening for other viral diseases

== ENCOUNTER → 2025-06-27 | Outpatient (REF) | payer MEDICARE | LOC: M LAB REF 14:22 | PROVIDERS: ATTEND Internal Medicine | DX: K70.30 Alcoholic cirrhosis of liver without ascites (principal); D64.9 Anemia, unspecified ==

== ENCOUNTER → 2025-06-27 | Outpatient (REF) | payer MEDICARE | LOC: M LAB REF 14:25 | PROVIDERS: ATTEND Internal Medicine | DX: D64.9 Anemia, unspecified (principal); K70.30 Alcoholic cirrhosis of liver without ascites ==

== ENCOUNTER → 2025-07-01 | Outpatient (CLI) | payer MEDICARE | LOC: M LAB 08:26 → M PLALAB 08:26 | PROVIDERS: ATTEND Internal Medicine | DX: D64.9 Anemia, unspecified (principal) ==

== ENCOUNTER 2025-07-02 07:10 | Outpatient (CLI) | payer MEDICARE ==
[~2025-07-02] VITALS: Ht 177.8 cm; Wt 76.3 kg
[2025-07-02] MEDS ORDERED: NS (Normal Saline) 0.9% 250 ML IV ONE (07:30)
[2025-07-02 08:05] VITALS: BP 113/56; TEMP 97; O2SAT 100
[2025-07-02] MEDS: ACETAMINOPHEN 650 MG PO ONE (08:24)
[2025-07-02 08:25] VITALS: BP 112/57; TEMP 97.7; O2SAT 100
[2025-07-02 09:25] VITALS: BP 131/88; TEMP 98.3; O2SAT 100
[2025-07-02 10:15] VITALS: BP 140/77; TEMP 97.7; O2SAT 100
[2025-07-02 11:30] VITALS: BP 119/67; TEMP 98; O2SAT 100
== END 2025-07-02 11:43 | disposition home or self-care (01) ==
LOC: M INFU 07:10
PROVIDERS: ATTEND Internal Medicine
DX: D64.9 Anemia, unspecified (principal)
CPT/HCPCS: 36430; P9016

== ENCOUNTER → 2025-07-03 | Outpatient (CLI) | payer MEDICARE | LOC: M WUC 12:05 | PROVIDERS: ATTEND Internal Medicine | DX: M25.532 Pain in left wrist (principal) ==

== ENCOUNTER → 2025-07-03 | Outpatient (CLI) | payer MEDICARE | LOC: M EKG 10:57 | PROVIDERS: ATTEND Physician Assistant | DX: R00.1 Bradycardia, unspecified (principal) ==

== ENCOUNTER → 2025-07-18 | Outpatient (REF) | payer MEDICARE ==
[2025-07-18 18:36] LABS: IRON (FE) 102.0 UG/DL (65-175); PERCENT SATURATION 29.5 % (19.7-50.0)
== END ==
LOC: M LAB REF 17:24
PROVIDERS: ATTEND Nurse Practitioner Adult Health
DX: D50.9 Iron deficiency anemia, unspecified (principal)

== ENCOUNTER → 2025-07-22 | Outpatient (CLI) | payer MEDICARE | LOC: M RAD 09:16 | PROVIDERS: ATTEND Internal Medicine | DX: K70.30 Alcoholic cirrhosis of liver without ascites (principal); K82.8 Other specified diseases of gallbladder ==

== ENCOUNTER → 2025-08-12 | Outpatient (REF) | payer MEDICARE | LOC: M LAB REF 11:58 | PROVIDERS: ATTEND Nurse Practitioner Adult Health | DX: I50.32 Chronic diastolic (congestive) heart failure (principal) ==

== ENCOUNTER → 2025-08-13 | Outpatient (CLI) | payer MEDICARE | LOC: M LAB 14:52 | PROVIDERS: ATTEND Internal Medicine | DX: D64.9 Anemia, unspecified (principal) ==

== ENCOUNTER 2025-08-14 07:17 | Outpatient (CLI) | payer MEDICARE ==
[~2025-08-14] VITALS: Ht 177.8 cm; Wt 77.3 kg
[2025-08-14 07:15] VITALS: BP 113/51; O2SAT 100
[2025-08-14] MEDS: ACETAMINOPHEN 650 MG PO ONE (07:31)
[2025-08-14 08:30] VITALS: BP 107/55; TEMP 97.4; O2SAT 100
[2025-08-14 09:30] VITALS: BP 104/59; TEMP 97.6; O2SAT 99
[2025-08-14 11:15] VITALS: BP 120/60; O2SAT 99
== END 2025-08-14 11:15 | disposition home or self-care (01) ==
LOC: M INFU 07:17
PROVIDERS: ATTEND Internal Medicine
DX: D50.9 Iron deficiency anemia, unspecified (principal)
CPT/HCPCS: 36430; P9016

== ENCOUNTER → 2025-08-22 | Outpatient (CLI) | payer MEDICARE ==
[2025-08-22 15:11] LABS: PLATELET COUNT, AUTOMATED 101 10^3/uL (150-450)
[2025-08-22 15:34] LABS: INR 1.22
[2025-08-22 15:45] LABS: ALT/SGPT 51.0 U/L (7.0-40); AST/SGOT 85.0 U/L (<34); CALCIUM LEVEL 8.0 MG/DL (8.3-10.6); CARBON DIOXIDE LEVEL 28.0 MMOL/L (20-31); CHLORIDE LEVEL 101.0 MMOL/L (98-107); CREATININE FOR GFR 0.85 MG/DL (0.70-1.30); GLOMERULAR FILTRATION RATE 87.8 (>35); POTASSIUM SERUM 3.9 MMOL/L (3.5-5.1); SODIUM LEVEL 135.0 MMOL/L (136-145)
== END ==
LOC: M LAB 14:09
PROVIDERS: ATTEND Internal Medicine
DX: D50.9 Iron deficiency anemia, unspecified (principal); D61.818 Other pancytopenia; I48.21 Permanent atrial fibrillation; I11.0 Hypertensive heart disease with heart failure; I50.9 Heart failure, unspecified; K70.30 Alcoholic cirrhosis of liver without ascites; Z79.82 Long term (current) use of aspirin; Z79.02 Long term (current) use of antithrombotics/antiplatelets

== ENCOUNTER 2025-08-23 10:19 | Outpatient (CLI) | payer MEDICARE ==
[~2025-08-23] VITALS: Ht 177.8 cm; Wt 77.2 kg
[2025-08-23] MEDS: ACETAMINOPHEN 650 MG PO ONE (10:30)
[2025-08-23] MEDS ORDERED: NS (Normal Saline) 0.9% 250 ML IV ONE (10:30)
[2025-08-23 10:47] VITALS: BP 124/61; TEMP 98.1; O2SAT 100
[2025-08-23 11:30] VITALS: BP 108/64; TEMP 98.5; O2SAT 100
[2025-08-23 12:30] VITALS: BP 110/70; TEMP 98.4; O2SAT 100
[2025-08-23 13:42] VITALS: BP 103/54; TEMP 99; O2SAT 98
[2025-08-23 14:10] VITALS: BP 112/57; O2SAT 98
== END 2025-08-23 14:10 | disposition home or self-care (01) ==
LOC: M INFU 10:19
PROVIDERS: ATTEND Internal Medicine
DX: D50.9 Iron deficiency anemia, unspecified (principal); Z91.02 Food additives allergy status
CPT/HCPCS: 36430; P9016

== ENCOUNTER 2025-08-31 16:46 | Inpatient (IN) | payer MEDICARE ==
[~2025-08-31] VITALS: Ht 177.8 cm; Wt 83.5 kg
[2025-08-31] MEDS ORDERED: ISOVUE-370 76% 100 ML VIAL As Ordered ONE (18:05)
[2025-08-31 18:11] LABS: VENOUS BASE EXCESS 2.3 (-2.0-2.0); VENOUS HCO3 26.3 MMOL/L (23.0-27.0); VENOUS O2 SATURATION 89.8 % (60.0-80.0); VENOUS PARTIAL PRESSURE CO2 38.1 mmHg (38.0-50.0); VENOUS PARTIAL PRESSURE O2 65.1 mmHg (30.0-50.0); VENOUS PH 7.457 UNITS (7.330-7.430); VENOUS STANDARD HCO3 26.4 MMOL/L; VENOUS TOTAL CO2 27.5 MMOL/L (24.0-28.0)
[2025-08-31 18:22] LABS: BASO # 0.0 10^3/uL (0.0-0.2); BASO % 0.6 % (0.0-1.0); EOS # 0.2 10^3/uL (0.0-0.5); EOS % 4.7 % (0.0-3.0); LYMPH # 0.5 10^3/uL (1.5-5.0); LYMPH % 14.2 % (24.0-44.0); MONO # 0.7 10^3/uL (0.0-0.8); MONO % 22.8 % (2.0-8.0); NEUTROPHILS # 1.8 10^3/uL (1.5-8.5); NEUTROPHILS % 57.4 % (36.0-66.0); PLATELET COUNT, AUTOMATED 128 10^3/uL (150-450)
[2025-08-31 18:38] LABS: CK-MB VALUE MASS 2.9 NG/ML (<3.6)
[2025-08-31 18:40] LABS: ETHYL ALCOHOL (ETHANOL) < 0.003 % (0.000-0.010)
[2025-08-31 18:41] LABS: SALICYLATE LEVEL < 3.0 MG/DL (<30)
[2025-08-31 18:42] LABS: ALT/SGPT 43 U/L (7.0-40); AST/SGOT 73 U/L (<34); CALCIUM LEVEL 8.3 MG/DL (8.3-10.6); CARBON DIOXIDE LEVEL 26 MMOL/L (20-31); CHLORIDE LEVEL 105 MMOL/L (98-107); CREATININE FOR GFR 0.88 MG/DL (0.70-1.30); GLOMERULAR FILTRATION RATE 86.9 (>35); POTASSIUM SERUM 4.2 MMOL/L (3.5-5.1); SODIUM LEVEL 140 MMOL/L (136-145)
[2025-08-31] MEDS: NS 500 ML IV ONE (18:44)
[2025-08-31 18:46] LABS: INR 1.29
[2025-08-31 18:57] LABS: CPK CREATINE PHOSPHOKINASE 120 U/L (46-171); MB/CK RELATIVE INDEX 2.41 (< OR =4)
[2025-08-31 19:29] LABS: CK-MB VALUE MASS 2.6 NG/ML (<3.6)
[2025-08-31 19:40] LABS: CPK CREATINE PHOSPHOKINASE 124.0 U/L (46-171); MB/CK RELATIVE INDEX 2.09 (< OR =4)
[2025-08-31 20:41] LABS: DIGOXIN LEVEL < 0.1 NG/ML (0.8-2.0)
[2025-08-31 21:33] LABS: KETONE, URINE AUTO RFX NEGATIVE (NEGATIVE); LEUKOCYTE ESTERASE UR AUTO RFX NEGATIVE (NEGATIVE); NITRITE, URINE AUTO RFX NEGATIVE (NEGATIVE); RBC, URINE AUTO RFX 0 /HPF (0-3); SQUAM EPITHELIAL CELL UR AURFX 0 /HPF (0-6); WBC, URINE AUTO RFX 0 /HPF (0-3)
[2025-08-31] MEDS: LACTULOSE 20 GM/30 ML SYRUP UDC PO ONE (21:49)
[2025-08-31 22:03] LABS: AMPHETAMINES LEVEL URINE NEGATIVE (NEGATIVE); BARBITURATES URINE NEGATIVE (NEGATIVE); BENZODIAZEPINES URINE NEGATIVE (NEGATIVE); CANNABINOIDS URINE NEGATIVE (NEGATIVE); COCAINE METABOLITE URINE NEGATIVE (NEGATIVE); METHADONE URINE NEGATIVE (NEGATIVE); OPIATES URINE NEGATIVE (NEGATIVE); PHENCYCLIDINE URINE NEGATIVE (NEGATIVE)
[2025-08-31 23:15] VITALS: BP 100/61; TEMP 97.6; O2SAT 97
[2025-09-01] VITALS (39 sets, daily range): BP systolic 77–138; BP diastolic 40–88; TEMP 97.6–98.7; O2SAT 92–100
[2025-09-01] MEDS ORDERED: CLOP75TA2 PO (00:27)
[2025-09-01] MEDS ORDERED: HOME MED LIST COMPLETE! XX SCH (00:30)
[2025-09-01] MEDS: THIAMINE 100 MG TAB PO SCH (01:08)
[2025-09-01 06:31] LABS: PLATELET COUNT, AUTOMATED 105 10^3/uL (150-450)
[2025-09-01 06:49] LABS: IRON (FE) 187.0 UG/DL (65-175)
[2025-09-01 06:50] LABS: PERCENT SATURATION 63.8 % (19.7-50.0)
[2025-09-01 06:52] LABS: ALT/SGPT 41.0 U/L (7.0-40); AST/SGOT 69.0 U/L (<34); CALCIUM LEVEL 8.2 MG/DL (8.3-10.6); CARBON DIOXIDE LEVEL 25.0 MMOL/L (20-31); CHLORIDE LEVEL 108.0 MMOL/L (98-107); CREATININE FOR GFR 0.8 MG/DL (0.70-1.30); GLOMERULAR FILTRATION RATE 89.5 (>35); POTASSIUM SERUM 3.9 MMOL/L (3.5-5.1); SODIUM LEVEL 141.0 MMOL/L (136-145)
[2025-09-01 06:54] LABS: INR 1.29
[2025-09-01] MEDS: FAMOTIDINE 20 MG TAB PO SCH (08:20)
[2025-09-01] MEDS: FOLIC ACID 1 MG TAB PO SCH (08:20)
[2025-09-01] MEDS: LACTULOSE 20 GM/30 ML SYRUP UDC PO SCH (08:20)
[2025-09-01] MEDS: MULTIVITAMINS/MINERALS THERAP 1 TAB PO SCH (08:20)
[2025-09-01] MEDS: CLOPIDOGREL 75 MG TAB PO SCH (08:21)
[2025-09-01] MEDS: MAGNESIUM GLUCONATE 500 MG TAB PO SCH (08:27)
[2025-09-01] MEDS: DIGOXIN 0.0625 MG PER 1/2 TABLET PO SCH (08:27)
[2025-09-01] MEDS: LACTULOSE 20 GM/30 ML SYRUP UDC PR ONE (08:50)
[2025-09-01] MEDS ORDERED: GLUCAGON INJ 1 MG VIAL SC PRN (09:40)
[2025-09-01] MEDS ORDERED: DEXTROSE 50% 50 ML SYRINGE IV PRN (09:40)
[2025-09-01] MEDS ORDERED: LABETALOL 100 MG/20 ML VIAL IV PRN (09:40)
[2025-09-01] MEDS ORDERED: GLUCOSE 4 GM CHEW PO PRN (09:40)
[2025-09-01] MEDS: OCTREOTIDE ACETATE 1,200 MCG in NS 238.8 ML IV SCH (11:08)
[2025-09-01] MEDS: OCTREOTIDE ACETATE 100 MCG/ML VIAL **IV ADMINISTRATION ONLY IV ONE (11:08)
[2025-09-01] MEDS: MULTIVITAMIN -ADULT INJECTION 10 ML, THIAMINE INJection 100 MG, FOLIC ACID 1 MG in NS (... IV ONE (11:08)
[2025-09-01 11:46] LABS: ABG BASE EXCESS 1.2 (-2.0-2.0); ABG HCO3 24.7 MMOL/L (22.0-26.0); ABG O2 SATURATION 96.7 % (95.0-99.0); ABG PARTIAL PRESSURE CO2 34.7 mmHg (35.0-45.0); ABG PARTIAL PRESSURE O2 92.1 mmHg (75.0-100.0); ABG STANDARD HCO3 25.5 MMOL/L. (22.0-26.0); ABG TOTAL CO2 25.8 MMOL/L (23.0-31.0); ABG pH (ARTERIAL) 7.470 UNITS (7.350-7.450)
[2025-09-01] MEDS: cefTRIAXone SOD 1 GM in DEXTROSE 5% (D5W) ADV/MINI-BAG 50 ML IV SCH (11:52)
[2025-09-01] MEDS: PANTOPRAZOLE 40MG VIAL IV SCH (11:52)
[2025-09-01] MEDS: LACTULOSE 20 GM/30 ML SYRUP UDC PO ONE (11:53)
[2025-09-01] MEDS: DIGOXIN INJ 0.5 MG/2 ML AMP IV ONE ×2 (16:21→18:22)
[2025-09-01] MEDS: LACTULOSE 20 GM/30 ML SYRUP UDC NG SCH (16:21)
[2025-09-01] MEDS ORDERED: LACTULOSE 20 GM/30 ML SYRUP UDC NG SCH (18:00)
[2025-09-01] MEDS ORDERED: TAMSULOSIN 0.4 MG CAP PO SCH (21:00)
[2025-09-01] MEDS ORDERED: ASPIRIN 81 MG ENTERIC TABLET PO SCH (21:00)
[2025-09-01] MEDS: D5W/0.45% SODIUM CHLORIDE 1,000 ML IV SCH (21:02)
[2025-09-02] VITALS (46 sets, daily range): BP systolic 84–155; BP diastolic 50–94; TEMP 97–99.1; O2SAT 93–100
[2025-09-02 06:24] LABS: BASO # 0.0 10^3/uL (0.0-0.2); BASO % 0.6 % (0.0-1.0); EOS # 0.1 10^3/uL (0.0-0.5); EOS % 2.2 % (0.0-3.0); LYMPH # 0.8 10^3/uL (1.5-5.0); LYMPH % 15.8 % (24.0-44.0); MONO # 1.1 10^3/uL (0.0-0.8); MONO % 22.0 % (2.0-8.0); NEUTROPHILS # 3.0 10^3/uL (1.5-8.5); NEUTROPHILS % 59.2 % (36.0-66.0); PLATELET COUNT, AUTOMATED 132 10^3/uL (150-450)
[2025-09-02 06:44] LABS: ALT/SGPT 46.0 U/L (7.0-40); AST/SGOT 77.0 U/L (<34); CALCIUM LEVEL 8.4 MG/DL (8.3-10.6); CARBON DIOXIDE LEVEL 24.0 MMOL/L (20-31); CHLORIDE LEVEL 112.0 MMOL/L (98-107); CREATININE FOR GFR 0.9 MG/DL (0.70-1.30); GLOMERULAR FILTRATION RATE 86.3 (>35); POTASSIUM SERUM 4.5 MMOL/L (3.5-5.1); SODIUM LEVEL 144.0 MMOL/L (136-145)
[2025-09-02] MEDS: DIGOXIN 0.125 MG TAB NG SCH (09:12)
[2025-09-02] MEDS: METOPROLOL TART 12.5 MG PER 1/2 TAB NG SCH (09:13)
[2025-09-02] MEDS: dexmedeTOMidine 200 MCG in IV 1 EA IV SCH (09:20)
[2025-09-02] MEDS: LACTULOSE 20 GM/30 ML SYRUP UDC NG ONE (09:40)
[2025-09-02] MEDS ORDERED: LACTULOSE 20 GM/30 ML SYRUP UDC NG SCH (12:00)
[2025-09-02] MEDS: LACTULOSE 20 GM/30 ML SYRUP UDC NG SCH (17:43)
[2025-09-02] MEDS: LACTULOSE 20 GM/30 ML SYRUP UDC PR ONE (20:43)
[2025-09-03] VITALS (15 sets, daily range): BP systolic 109–145; BP diastolic 58–88; TEMP 97.1–101.6; O2SAT 94–100
[2025-09-03 08:14] LABS: CALCIUM LEVEL 7.6 MG/DL (8.3-10.6); CARBON DIOXIDE LEVEL 23.0 MMOL/L (20-31); CHLORIDE LEVEL 113.0 MMOL/L (98-107); CREATININE FOR GFR 0.84 MG/DL (0.70-1.30); GLOMERULAR FILTRATION RATE 88.2 (>35); POTASSIUM SERUM 3.8 MMOL/L (3.5-5.1); SODIUM LEVEL 144.0 MMOL/L (136-145)
[2025-09-03] MEDS: ACETAMINOPHEN *IV* 1,000 MG in IV 1 EA IV ONE (20:57)
[2025-09-04] VITALS (9 sets, daily range): BP systolic 107–136; BP diastolic 57–67; TEMP 98–98.8; O2SAT 94–100
[2025-09-04 08:30] LABS: BASO # 0.0 10^3/uL (0.0-0.2); BASO % 0.6 % (0.0-1.0); EOS # 0.3 10^3/uL (0.0-0.5); EOS % 5.5 % (0.0-3.0); LYMPH # 0.9 10^3/uL (1.5-5.0); LYMPH % 18.2 % (24.0-44.0); MONO # 1.0 10^3/uL (0.0-0.8); MONO % 20.9 % (2.0-8.0); NEUTROPHILS # 2.6 10^3/uL (1.5-8.5); NEUTROPHILS % 54.6 % (36.0-66.0); PLATELET COUNT, AUTOMATED 113 10^3/uL (150-450)
[2025-09-04 08:41] LABS: ALT/SGPT 42.0 U/L (7.0-40); AST/SGOT 68.0 U/L (<34); CALCIUM LEVEL 7.5 MG/DL (8.3-10.6); CARBON DIOXIDE LEVEL 24.0 MMOL/L (20-31); CHLORIDE LEVEL 113.0 MMOL/L (98-107); CREATININE FOR GFR 0.92 MG/DL (0.70-1.30); GLOMERULAR FILTRATION RATE 84.1 (>35); MAGNESIUM LEVEL 2.0 MG/DL (1.8-2.4); POTASSIUM SERUM 3.8 MMOL/L (3.5-5.1); SODIUM LEVEL 144.0 MMOL/L (136-145)
[2025-09-04] MEDS ORDERED: ASPIRIN 81 MG ENTERIC TABLET PO SCH (09:00)
[2025-09-04] MEDS: CLOPIDOGREL 75 MG TAB PO SCH (15:10)
[2025-09-04] MEDS: FERRIC CARBOXYMALTOSE INJ 750 MG, VIAL MATE ADAPTER 1 EACH in NS 100 ML IV ONE (15:11)
[2025-09-05 03:30] VITALS: BP 112/60; TEMP 98.2; O2SAT 97
[2025-09-05 07:12] LABS: BASO # 0.0 10^3/uL (0.0-0.2); BASO % 0.4 % (0.0-1.0); EOS # 0.3 10^3/uL (0.0-0.5); EOS % 5.4 % (0.0-3.0); LYMPH # 1.1 10^3/uL (1.5-5.0); LYMPH % 19.5 % (24.0-44.0); MONO # 1.1 10^3/uL (0.0-0.8); MONO % 19.6 % (2.0-8.0); NEUTROPHILS # 3.1 10^3/uL (1.5-8.5); NEUTROPHILS % 54.9 % (36.0-66.0); PLATELET COUNT, AUTOMATED 119 10^3/uL (150-450)
[2025-09-05 07:17] LABS: ALT/SGPT 38.0 U/L (7.0-40); AST/SGOT 62.0 U/L (<34); CALCIUM LEVEL 7.8 MG/DL (8.3-10.6); CARBON DIOXIDE LEVEL 24.0 MMOL/L (20-31); CHLORIDE LEVEL 110.0 MMOL/L (98-107); CREATININE FOR GFR 1.11 MG/DL (0.70-1.30); GLOMERULAR FILTRATION RATE 67.1 (>35); MAGNESIUM LEVEL 2.1 MG/DL (1.8-2.4); POTASSIUM SERUM 4.1 MMOL/L (3.5-5.1); SODIUM LEVEL 141.0 MMOL/L (136-145)
[2025-09-05] MEDS: TORSEMIDE 20 MG TAB PO SCH (09:46)
[2025-09-05 12:00] VITALS: BP 115/60; TEMP 98.9; O2SAT 98
[2025-09-05] MEDS: LACTULOSE 20 GM/30 ML SYRUP UDC PO SCH (21:00)
[2025-09-05] MEDS ORDERED: LACTULOSE 20 GM/30 ML SYRUP UDC NG SCH (21:00)
[2025-09-05] MEDS: METOPROLOL TART 12.5 MG PER 1/2 TAB PO SCH (21:14)
[2025-09-05] MEDS: PANTOPRAZOLE 40MG TAB PO SCH (21:14)
[2025-09-05 21:45] VITALS: BP 114/55; TEMP 98.4; O2SAT 100
[2025-09-06 03:36] VITALS: BP 104/65; TEMP 98.2; O2SAT 98
[2025-09-06 05:48] LABS: BASO # 0.0 10^3/uL (0.0-0.2); BASO % 0.4 % (0.0-1.0); EOS # 0.2 10^3/uL (0.0-0.5); EOS % 4.8 % (0.0-3.0); LYMPH # 0.9 10^3/uL (1.5-5.0); LYMPH % 18.8 % (24.0-44.0); MONO # 1.1 10^3/uL (0.0-0.8); MONO % 21.9 % (2.0-8.0); NEUTROPHILS # 2.6 10^3/uL (1.5-8.5); NEUTROPHILS % 53.9 % (36.0-66.0); PLATELET COUNT, AUTOMATED 120 10^3/uL (150-450)
[2025-09-06 06:30] LABS: ALT/SGPT 36.0 U/L (7.0-40); AST/SGOT 60.0 U/L (<34); CALCIUM LEVEL 7.5 MG/DL (8.3-10.6); CARBON DIOXIDE LEVEL 20.0 MMOL/L (20-31); CHLORIDE LEVEL 109.0 MMOL/L (98-107); CREATININE FOR GFR 1.08 MG/DL (0.70-1.30); GLOMERULAR FILTRATION RATE 69.4 (>35); MAGNESIUM LEVEL 1.6 MG/DL (1.8-2.4); POTASSIUM SERUM 3.7 MMOL/L (3.5-5.1); SODIUM LEVEL 137.0 MMOL/L (136-145)
[2025-09-06] MEDS: CIPROFLOXACIN 500 MG TABLET PO SCH (07:34)
[2025-09-06] MEDS: MAG SULF 1GM/100ML (MAG RUN) 1 GM in IV 1 EA IV SCH (07:42)
[2025-09-06 09:00] VITALS: BP 100/56
[2025-09-06] MEDS: DIGOXIN 0.125 MG TAB PO SCH (09:06)
[2025-09-06] MEDS: MAGNESIUM OXIDE 400 MG TAB PO SCH (09:07)
[2025-09-06] MEDS ORDERED: METO1TAB87 PO (09:58)
[2025-09-06] MEDS ORDERED: XIFA550T PO (09:58)
[2025-09-06] MEDS ORDERED: LACT20EL PO (09:58)
[2025-09-06] MEDS ORDERED: CIPR500T39 PO (09:58)
[2025-09-06] MEDS ORDERED: PANT40TA29 PO (09:58)
[2025-09-06 12:00] VITALS: BP 107/53; TEMP 98.7; O2SAT 97
== END 2025-09-06 13:05 | disposition home health service (06) | DRG 441 ==
LOC: M ED 16:46 → M ED INP 23:40 → M MSPAV 09-01 01:19 → M ICU 09-01 10:37 → M PCU 09-03 22:30 → M MSPAV 09-04 18:33
PROVIDERS: ADMIT Student in an Organized Health Care Education/Training Program; ATTEND Internal Medicine
PROC: 30233N1 Transfusion of Nonautologous Red Blood Cells into Peripheral Vein, Percutaneous Approach (ICD-10-PCS; principal; 2025-08-31)
DX: K76.82 Hepatic encephalopathy (principal); G93.41 Metabolic encephalopathy; D61.818 Other pancytopenia; F10.231 Alcohol dependence with withdrawal delirium; I42.6 Alcoholic cardiomyopathy; I50.32 Chronic diastolic (congestive) heart failure; K92.2 Gastrointestinal hemorrhage, unspecified; I48.91 Unspecified atrial fibrillation; K70.30 Alcoholic cirrhosis of liver without ascites; N40.0 Benign prostatic hyperplasia without lower urinary tract symptoms; R45.1 Restlessness and agitation; D69.6 Thrombocytopenia, unspecified; I11.0 Hypertensive heart disease with heart failure; R33.9 Retention of urine, unspecified; D50.9 Iron deficiency anemia, unspecified; Z90.49 Acquired absence of other specified parts of digestive tract; Z95.818 Presence of other cardiac implants and grafts; Z87.891 Personal history of nicotine dependence; Z79.82 Long term (current) use of aspirin; Z79.899 Other long term (current) drug therapy; Z91.018 Allergy to other foods